=== PATIENT | female | born 1950 | race Caucasian/White ===

== ENCOUNTER 2019-12-18 11:08 | Emergency (ER) | payer MEDICARE, OTHER, SELFPAY ==
[2019-12-18 11:25] VITALS: BP 147/78; PULSE 85; RESP 14; TEMP 36.1; O2SAT 99
--- NOTE | 2019-12-18 11:38 | PC.NURSE ---
pt states that she has recently started on Effexor, lasted five days, says she got worse. stopped that medication and restarted back on paxil. pt thinks she may need a psychiatrist. pt adamantly denied any self harming thoughts. no history of self harm . described mood as weird, doesn't feel like herself. says that her ADL'S have been inhibited. pt says that she is fearful, is scared.
[2019-12-18 12:39] LABS: Basophils Percent Auto 0.5 % (0.2-1.2); Eosinophils Percent Auto 0.2 % (0-4.4); Hematocrit 39.7 % (37.0-47.0); Hemoglobin 13.9 g/dL (12.0-15.0); Immature Granulocyte Absolute 0.02 K/mm3 (0.00-0.031); Immature Granulocyte Percent A 0.2 % (0-0.5); Lymphocytes Absolute Auto 1.04 K/mm3 (0.9-3.2); Lymphocytes Percent Auto 11.9 % (18.3-44.2); Mean Corpuscular Hemoglobin 30.2 pg (26-34); Mean Corpuscular Volume 86.3 fl (80-100); Mean Platelet Volume 9.6 fl (7.4-10.4); Monocytes Absolute Auto 0.5 K/mm3 (0.1-0.6); Monocytes Percent Auto 5.7 % (2.6-8.5); Neutrophils Absolute Auto 7.1 K/mm3 (1.3-6.7); Neutrophils Percent Auto 81.5 % (45.5-73.1); Platelet Count Result 330 k/mm3 (150-375); Red Cell Distribution Width 13.2 % (11.5-14.5); White Blood Count 8.7 K/mm3 (4.5-10.0)
--- NOTE | 2019-12-18 12:46 | PC.NURSE ---
Patient reports that she is feeling very depressed. She tells me that she does not have any energy and is having difficulty getting up and doing normal activities. She also tells me that she is not able to get out of her house to get groceries or run errands. Her family is helping her with this and bringing her groceries and other essential items. She is able to cook and clean as well as perform ADL's but tells me it is difficult due to the depression. She denies any suicidal or homicidal thoughts or actions. She has support system consisting of her son and daughter as well as her neighbor and she tells me that she is able to talk to them and have them help as needed. She is awake, alert, and oriented x4 at this time. She does not report other concerns to me at this time.
[2019-12-18 12:51] LABS: Add Urine Microscopic? YES; Appearance Urine Cloudy (Clear); Bacteria Urine 2+ /hpf; Bilirubin Urine Negative (Negative); Blood Urine Negative (Negative); Color Urine Yellow (Yellow); Glucose Urine UA Negative (Negative); Ketones Urine Negative (Negative); Leukocyte Esterase Ur Negative LEU/UL (Negative); Mucus Urine Rare /lpf; Nitrate Urine Negative (Negative); Protein Urine Negative (Negative); RBC Urine 0-2 /hpf (0-2); Specific Grav Ur 1.015 (1.001-1.035); Squamous Epithelial Cell Urine Many /hpf (Few); Urobilinogen Urine Negative mg/dL (<2.0)
[2019-12-18 12:52] LABS: Alanine Aminotransferase 17 U/L (4-35); Albumin Level 4.2 g/dL (3.5-5.1); Alkaline Phosphatase 86 U/L (38-126); Anion Gap 9 mmol/L (8-16); Aspartate Amino Transferase 25 U/L (14-36); Blood Urea Nitrogen 13 mg/dL (7-17); Calcium 8.9 mg/dL (8.4-10.2); Carbon Dioxide 24 mmol/L (22-30); Chloride 103 mmol/L (98-107); Estimated CRCL calculation 43 ml/min; Estimated Glomerular Filt Rate > 60; Glucose 124 mg/dL (65-105); Potassium 3.5 mmol/L (3.4-5.0); Sodium 136 mmol/L (137-145)
[2019-12-18 13:22] LABS: Thyroid Stimulating Hormone 0.914 uIU/mL (0.465-4.680)
--- NOTE | 2019-12-18 13:56 | ED.GENADULT ---
HPI - General Adult General Chief complaint: Psychiatric Symptoms Stated complaint: depression Time Seen by Provider: 12/18/19 12:15 Source: patient Mode of arrival: ambulatory Limitations: no limitations History of Present Illness HPI narrative: 68 years old white female referred to the emergency room by her family physician because of depression. Patient been taking anti-depression medication without improvement. Patient lives alone, lost her dog 9 months ago, and COVID-19 pandemic a started 6 months ago. Patient does not get out, does not have friends or family. Patient denies any suicidal or homicidal ideation. Related Data Home Medications Medication Instructions Recorded Confirmed amlodipine 12/18/19 atorvastatin 12/18/19 celecoxib mg 12/18/19 estradiol 12/18/19 pantoprazole PO 12/18/19 paroxetine HCl mg PO 12/18/19 12/18/19 Allergies Allergy/AdvReac Type Severity Reaction Status Date / Time amoxicillin AdvReac Mild DIARRHEA Verified 12/18/19 11:41 Review of Systems Review of Systems: Narrative: CONSTITUTIONAL: Denies fever, chills, or sweats. EYES: Denies visual changes, redness, or discharge. ENT: Denies rhinorrhea, congestion, sore throat, or otalgia. CARDIOVASCULAR: Denies chest pain, palpitations, or edema. RESPIRATORY: Denies cough or dyspnea. GASTROINTESTINAL: Denies abdominal pain, nausea, vomiting, or diarrhea. GENITOURINARY: Denies dysuria or hematuria. SKIN: Denies rash or itching. MUSCULOSKELETAL: Denies back pain, joint pain, or myalgia. NEUROLOGIC: Denies headache, numbness, or weakness. PSYCHIATRIC: Denies anxiety or depression. [facility] Social History Social History (Updated 12/18/19 @ 13:58 by Rebecca Guillory MD) Second hand tobacco smoke exposure: No Substance use: never Living arrangements: alone Occupation/Education: retired Spiritual care concerns: No Exam Narrative: Exam Narrative: General appearance: Well-developed, well-nourished Skin: Normal color Head: Normocephalic, nontraumatic Eyes: Clear conjunctiva ENT: Oropharynx normal, ears normal, nose normal Neck: Supple, nontender Chest and respiratory: Airway patent, no respiratory distress, no accessory muscle use Heart: Regular rate/rhythm Abdomen: Soft, nontender, no organomegaly, quiet bowel sounds Vascular: Normal peripheral pulses, normal capillary refill. Musculoskeletal: Normal range of motion, nontender back Neurologic: Alert and oriented ?3, [place] is normal as tested, no gross motor deficit Course Course Emergency Course: Stable Vital Signs Vital signs: Vital Signs Temperature 36.1 C L 12/18/19 11:25 Pulse Rate 85 12/18/19 11:25 Respiratory Rate 14 12/18/19 11:25 Blood Pressure 147/78 H 12/18/19 11:25 Pulse Oximetry 99 12/18/19 11:25 Temperature 36.1 C L 12/18/19 11:25 Pulse Rate 85 12/18/19 11:25 Respiratory Rate 14 12/18/19 11:25 Blood Pressure 147/78 H 12/18/19 11:25 Pulse Oximetry 99 12/18/19 11:25 Medical Decision Making MDM Narrative Medical decision making narrative: Patient lives alone, lost her dog 9 months ago, does not have friends or family. Feels depressed and feels not herself. But denies any suicidal or homicidal ideation. Currently patient on an antidepressant medication which I believe need to be readjusted by her family physician or a psychiatrist. My plan to get some labs and rule out any possible medical reason for her depression. Vital Signs Vital Signs: Vital Signs Temperature 36.1 C L 12/18/19 11:25 Pulse Rate 85 12/18/19 11:25 Respiratory Rate 12/18/19 11:25 Blood Pressure 147/78 H 12/18/19 11:25 Pulse Oximetry 99 12/18/19 11:25
[2019-12-18 14:17] VITALS: BP 152/84; PULSE 88; RESP 16; O2SAT 97
== END 2019-12-18 14:18 | disposition home or self-care (01) ==
PROVIDERS: Emergency Provider Emergency Medicine; PCP Internal Medicine
DX: F32.89 Other specified depressive episodes (principal)
CPT/HCPCS: 36415; 80053; 81001; 84443; 85025; 99283

== ENCOUNTER 2019-12-22 14:38 | Emergency (ER) | payer MEDICARE, OTHER, SELFPAY ==
[2019-12-22] VITALS (25 sets, daily range): BP systolic 112–149; BP diastolic 63–80; PULSE 76–85; RESP 16–25; TEMP 36.7; O2SAT 94–98
--- NOTE | ~2019-12-22 | CT_ITS ---
EXAMINATION: CT brain wo con DATE: 12/22/2019 17:12 INDICATION: Confusion. TECHNIQUE: Computed tomography (CT) of the head was performed without intravenous contrast. The mA wa s adjusted according to patient size. Iterative reconstruction technique was employed. The dose-lengt h product was 529.67 mGy-cm. COMPARISON: None FINDINGS: There is a 5.7 cm predominantly cystic mass in centered in right temporal lobe with adjacen t low-attenuation vasogenic edema. There is mass effect on right lateral ventricle and third ventricl e and 10 mm leftward midline shift. Right-sided uncal herniation is noted. There is mild enlargement of temporal horn of left lateral ventricle. There is no intracranial hemorrhage. There are likely radha nges of ocular lens replacement surgeries. There is mild mucosal thickening in the ethmoid sinuses. T here is a trace right mastoid effusion. IMPRESSION: 1. 5.7 cm predominantly cystic mass centered in right temporal lobe, most likely metastatic disease. 2. 10 mm leftward midline shift and right-sided uncal herniation. 3. I called these results to Dr. Hassan. Reviewed, dictated and finalized at location A. IMPRESSION: 1. 5.7 cm predominantly cystic mass centered in right temporal lobe, most likel y metastatic disease. 2. 10 mm leftward midline shift and right-sided uncal herniation. 3. I called these results to Dr. Hassan.
--- NOTE | 2019-12-22 15:57 | ECG_ITS ---
Measurements Intervals [place] Rate: 77 P: 52 ID: [id number] QRS: 16 QRSD: 84 T: 41 QT: 390 QTc: 443 Interpretive Statements SINUS RHYTHM BASELINE ARTIFACT- I, II, III, AVR, AVL, AVF, V3-V4 NORMAL ECG Electronically Signed On 12-22-2019 16:45:36 CDT by Monty Cardona D.O.
[2019-12-22 16:16] LABS: Basophils Absolute Auto 0.1 K/mm3 (0.0-0.1); Basophils Percent Auto 0.5 % (0.2-1.2); Eosinophils Percent Auto 0.2 % (0-4.4); Hematocrit 43.5 % (37.0-47.0); Hemoglobin 15.2 g/dL (12.0-15.0); Immature Granulocyte Absolute 0.04 K/mm3 (0.00-0.031); Immature Granulocyte Percent A 0.4 % (0-0.5); Lymphocytes Absolute Auto 1.45 K/mm3 (0.9-3.2); Lymphocytes Percent Auto 15.4 % (18.3-44.2); Mean Corpuscular HGB Conc 34.9 g/dl (32-36); Mean Corpuscular Hemoglobin 30.1 pg (26-34); Mean Corpuscular Volume 86.1 fl (80-100); Mean Platelet Volume 10.1 fl (7.4-10.4); Monocytes Absolute Auto 0.7 K/mm3 (0.1-0.6); Monocytes Percent Auto 7.4 % (2.6-8.5); Neutrophils Absolute Auto 7.2 K/mm3 (1.3-6.7); Neutrophils Percent Auto 76.1 % (45.5-73.1); Platelet Count Result 364 k/mm3 (150-375); Red Blood Count 5.05 M/mm3 (4.2-5.4); Red Cell Distribution Width 13.2 % (11.5-14.5); White Blood Count 9.4 K/mm3 (4.5-10.0)
[2019-12-22 16:26] LABS: Alanine Aminotransferase 19 U/L (4-35); Albumin Level 4.6 g/dL (3.5-5.1); Alkaline Phosphatase 105 U/L (38-126); Anion Gap 8 mmol/L (8-16); Aspartate Amino Transferase 27 U/L (14-36); Blood Urea Nitrogen 10 mg/dL (7-17); Calcium 9.4 mg/dL (8.4-10.2); Carbon Dioxide 27 mmol/L (22-30); Chloride 101 mmol/L (98-107); Estimated CRCL calculation 38 ml/min; Estimated Glomerular Filt Rate 55; Glucose 120 mg/dL (65-105); Potassium 3.4 mmol/L (3.4-5.0); Sodium 136 mmol/L (137-145)
--- NOTE | 2019-12-22 17:31 | ED.GENADULT ---
HPI - General Adult General Chief complaint: Altered Mental Status Stated complaint: alt mental status Time Seen by Provider: 12/22/19 16:48 Source: patient History of Present Illness HPI narrative: Patient is a 68 y/o female complaining of frequent falls for 1 1/2 weeks. She states that she fell at least 4 times. There is no known alleviating or exacerbating factor. She has some mild headache, but denies any other injury. She also feels that she has been more forgetful lately. She denies any focal weakness/numbness or speech difficulty. She was evaluated here 4 days ago. Related Data Home Medications Medication Instructions Recorded Confirmed amlodipine 12/18/19 atorvastatin 12/18/19 celecoxib mg 12/18/19 estradiol 12/18/19 pantoprazole PO 12/18/19 paroxetine HCl mg PO 12/18/19 12/18/19 atorvastatin 80 mg PO DAILY 12/22/19 Allergies Allergy/AdvReac Type Severity Reaction Status Date / Time amoxicillin AdvReac Mild DIARRHEA Verified 12/18/19 11:41 Review of Systems Constitutional: Constitutional: Denies chills, Denies fever(s), Reports headache(s) and Denies weakness Eyes: Eyes: Denies blurry vision ENT: Reports headache(s) and Denies neck pain Cardiovascular: Cardiovascular: Denies chest pain and Denies dyspnea Respiratory: Respiratory: Denies cough and Denies dyspnea Gastrointestinal: Gastrointestinal: Denies abdominal pain, Denies diarrhea, Denies nausea and Denies vomiting Genitourinary: Genitourinary: Denies hematuria and Denies dysuria Musculoskeletal: Musculoskeletal: Denies back pain and Denies neck pain Neurologic: Reports headache(s), Reports disequilibrium and Denies weakness [facility] Social History Social History Second hand tobacco smoke exposure: No Substance use: never Spiritual care concerns: No Exam Const: General: no acute distress and well developed Orientation/consciousness: oriented to person, oriented to place, oriented to time and patient oriented x3 HENMT: Head: normocephalic Ears: external ears normal General nose exam: Normal external nose present Eyes: General: appearance normal, both eyes and all related structures Conjunctivae: conjunctivae normal Neck: Neck: normal visual inspection and full ROM Chest: Chest palpation & inspection: normal inspection of the chest and no tenderness Resp: Effort & Inspection: normal respiratory effort Auscultation: clear to auscultation bilaterally Cardio: Rate: regular rate Rhythm: regular rhythm GI: GI Palp: No abdominal tenderness and Yes Soft to palpation Skin: General skin exam: normal color and turgor normal Neuro: General: oriented to person, oriented to place, oriented to time and patient oriented x3 Cranial nerves: Yes CN's II-XII intact bilaterally Cognition (Neuro): normal cognition Speech: normal speech Motor exam (neuro): 5/5 motor strength present throughout Sensory Exam: normal sensation Coordination: [id number] test normal Extrem: General: normal to inspection, full ROM and no pedal edema Psych: Appearance: grossly normal Mental Status: mental status grossly normal Affect: normal affect Course Consultations Consultation #1: Discussed with Dr. Wakefield (Neurosurgery at [place]), who agrees to accept the patient for transfer. Date: 12/22/19 Time: 18:00 Vital Signs Vital signs: Vital Signs Temperature 36.7 C 12/22/19 15:51 Pulse Rate 81 12/22/19 15:51 Respiratory Rate 18 12/22/19 15:51 Blood Pressure 148/77 H 12/22/19 15:51 Pulse Oximetry 98 12/22/19 15:51 Temperature 36.7 C 12/22/19 15:51 Pulse Rate 83 12/22/19 18:16 Respiratory Rate 20 12/22/19 18:16 Blood Pressure 149/78 H 12/22/19 18:16 Pulse Oximetry 95 12/22/19 18:16 Medical Decision Making Vital Signs Vital Signs: Vital Signs Temperature 36.7 C 12/22/19 15:51 Pulse Rate 81 12/22/19 15:51 Respiratory Rate 18 12/22/19 15:51 Bl
[2019-12-22 18:05] LABS: Add Urine Microscopic? NO; Appearance Urine Clear (Clear); Bilirubin Urine Negative (Negative); Blood Urine Negative (Negative); Color Urine Straw (Yellow); Glucose Urine UA Negative (Negative); Ketones Urine Negative (Negative); Leukocyte Esterase Ur Negative LEU/UL (Negative); Nitrate Urine Negative (Negative); Protein Urine Negative (Negative); Specific Grav Ur 1.006 (1.001-1.035); Urobilinogen Urine Negative mg/dL (<2.0)
[2019-12-22] MEDS: DEXAMETHASONE SOD PHOS INJ 4 MG/ML VIAL IV PUSH (18:40)
== END 2019-12-22 20:37 | disposition short-term general hospital (02) ==
PROVIDERS: Emergency Provider Emergency Medicine; PCP Internal Medicine
DX: R41.82 Altered mental status, unspecified (principal); G93.9 Disorder of brain, unspecified
CPT/HCPCS: 36415; 51701; 70450; 80053; 81003; 85025; 93005; 96374; 99285; J1100

== ENCOUNTER 2020-04-20 22:51 | Emergency (ER) | payer MEDICARE, OTHER, SELFPAY ==
--- NOTE | 2020-04-20 23:00 | ECG_ITS ---
Measurements Intervals [place] Rate: 104 P: 64 DC: 189 QRS: 40 QRSD: 82 T: 36 QT: 345 QTc: 455 Interpretive Statements SINUS TACHYCARDIA BASELINE ARTIFACT- I, II, III, AVR, AVL, AVF BORDERLINE ECG Electronically Signed On 04-22-2020 10:41:11 [employer] by Monty Cardona D.O.
[2020-04-20 23:03] VITALS: PULSE 98; RESP 18; TEMP 36.5; O2SAT 100
--- NOTE | 2020-04-20 23:20 | PC.NURSE ---
Report received from OREN Longoria.
--- NOTE | 2020-04-20 23:25 | ED.SOB ---
HPI - SOB/Dyspnea General Chief Complaint: Shortness of Breath/Dyspnea Stated Complaint: SOB, heart palpitations Time Seen by Provider: 04/20/20 23:25 History of Present Illness HPI Narrative: 69 yo female presents to the ED for palpitations and SOB. She used medical marijuana for the first time this evening and shortly after that she felt her heart start racing and she became short of breath. This last about 15 minutes. On arrival to the ED she was feeling back to normal. She believes that she had a panic attack due to the marijuana. Related Data Home Medications Medication Instructions Recorded Confirmed amlodipine 10 mg PO DAILY 12/18/19 celecoxib 200 mg PO DAILY 12/18/19 estradiol 12/18/19 pantoprazole PO 12/18/19 paroxetine HCl mg PO 12/18/19 12/18/19 atorvastatin 80 mg PO DAILY 12/22/19 levetiracetam [Keppra] 750 mg PO BID 04/20/20 Allergies Allergy/AdvReac Type Severity Reaction Status Date / Time amoxicillin AdvReac Mild DIARRHEA Verified 12/18/19 11:41 Review of Systems Review of Systems: All systems reviewed & are unremarkable except as noted in HPI and below Constitutional: Constitutional: Denies fever(s) and Denies weakness Eyes: Eyes: Denies change in vision Cardiovascular: Cardiovascular: Denies chest pain and Reports rapid heart rate Respiratory: Respiratory: Denies chest congestion, Denies cough and Reports dyspnea Gastrointestinal: Gastrointestinal: Denies abdominal pain, Denies nausea and Denies vomiting Genitourinary: Genitourinary: Denies dysuria Musculoskeletal: Musculoskeletal: Denies back pain Neurologic: Denies numbness and Denies weakness PMFSH Past Medical History Medical History (Updated 04/22/20 @ 03:15 by Rian Stout MD) Brain cancer HTN (hypertension) Social History Social History Second hand tobacco smoke exposure: No Substance use: never Spiritual care concerns: No Exam Const: General: no acute distress, alert and ill appearing chronically Nutritional Appearance: well nourished Orientation/consciousness: patient oriented x3 HENMT: Head: normal to inspection Eyes: Pupils: Equal, round and reactive pupils present Resp: Effort & Inspection: normal respiratory effort Auscultation: clear to auscultation bilaterally Cardio: Rate: regular rate Rhythm: regular rhythm GI: GI Palp: Yes Soft to palpation and No Tenderness to palpation present (GI) Neuro: General: patient oriented x3, moves all extremities, no focal motor deficits and CN's II-XI intact bilaterally Speech: normal speech Course Vital Signs Vital signs: Vital Signs Temperature 36.5 C 04/20/20 23:03 Pulse Rate 98 04/20/20 23:03 Respiratory Rate 18 04/20/20 23:03 Pulse Oximetry 100 04/20/20 23:03 Temperature 36.5 C 04/20/20 23:03 Pulse Rate 88 04/20/20 23:40 Respiratory Rate 12 04/20/20 23:40 Blood Pressure 130/91 H 04/20/20 23:40 Pulse Oximetry 96 04/20/20 23:40 MDM - SOB/Dyspnea MDM Narrative Medical decision making narrative: On my evaluation she says that she is feeling well and ready to go home. Her son is present and agrees that she seems to be her normal self. Differential Diagnosis Differential diagnosis: Likely other (panic attack) Medical Records Attestation: I reviewed the patient's medical records. Discharge Plan Discharge Clinical Impression: Anxiety Patient Disposition: Home, Self-Care Condition: Stable Instructions: Anxiety (ED) Prescriptions: No Action celecoxib 200 mg capsule 200 mg PO DAILY RF: 0 estradiol 0.1 mg/24 hr patch semiweekly RF: 0 amlodipine 10 mg tablet 10 mg PO DAILY RF: 0 pantoprazole 40 mg tablet,delayed release (DR/EC) PO RF: 0 paroxetine HCl 40 mg tablet PO RF: 0 atorvastatin 80 mg Tablet 80 mg PO DAILY RF: 0 levetiracetam [Keppra] 750 mg Tablet 750 mg PO BID RF: 0 Follow-
--- NOTE | 2020-04-20 23:25 | PC.NURSE ---
Called to patient room, states that her legs feel funny, and my right one is shaking . Warm blanket offered and given.
[2020-04-20 23:40] VITALS: BP 130/91; PULSE 88; RESP 12; O2SAT 96
== END 2020-04-20 23:46 | disposition home or self-care (01) ==
PROVIDERS: Emergency Provider Emergency Medicine; PCP Internal Medicine
DX: F41.9 Anxiety disorder, unspecified (principal); I10 Essential (primary) hypertension; Z85.841 Personal history of malignant neoplasm of brain; R00.0 Tachycardia, unspecified
CPT/HCPCS: 93005; 99283

== ENCOUNTER 2020-11-19 15:27 | Emergency (ER) | payer MEDICARE, OTHER, SELFPAY ==
[2020-11-19 15:35] VITALS: BP 150/73; PULSE 86; RESP 17; TEMP 36.3; O2SAT 98
--- NOTE | 2020-11-19 15:36 | ED.SKABFB ---
HPI - Skin/Abscess/Foreign Bdy General Chief complaint: Skin/Abscess/Foreign Body Stated complaint: Rash back Lt thigh Time Seen by Provider: 11/19/20 15:35 Source: patient and RN notes reviewed Mode of arrival: ambulatory Limitations: no limitations History of Present Illness HPI narrative: 69-year-old female presents to the [facility] with a rash to the left posterior thigh for the last 2 to 3 days. Describes that when it started it was very itchy. It is dry, mildly raised and red. No increased warmth. No blisters or vesicular lesions. Denies any new creams or ointments lotions or detergents. States that she just had her yard sprayed with chemicals. Related Data Home Medications Medication Instructions Recorded Confirmed amlodipine 10 mg PO DAILY 12/18/19 11/19/20 celecoxib 200 mg PO DAILY 12/18/19 11/19/20 estradiol 1 patch TRANSDERMAL WE 12/18/19 11/19/20 pantoprazole 40 mg PO DAILY 12/18/19 11/19/20 paroxetine HCl 40 mg PO DAILY 12/18/19 11/19/20 atorvastatin 80 mg PO DAILY 12/22/19 11/19/20 levetiracetam [Keppra] 750 mg PO BID 04/20/20 11/19/20 latanoprost 1 drp EACH EYE HS 11/19/20 11/19/20 Allergies Allergy/AdvReac Type Severity Reaction Status Date / Time amoxicillin AdvReac Mild DIARRHEA Verified 11/19/20 15:34 Review of Systems Review of Systems: All systems reviewed & are unremarkable except as noted in HPI and below Constitutional: Constitutional: Reports no additional constitutional complaints, Denies chills and Denies fever(s) Eyes: Eyes: Reports no additional eye complaints ENT: Reports system reviewed and no additional complaints, except as documented Cardiovascular: Cardiovascular: Reports no additional cardiovascular complaints and Denies chest pain Respiratory: Respiratory: Reports no additional respiratory complaints, Denies cough, Denies dyspnea and Denies wheezing Gastrointestinal: Gastrointestinal: Reports no additional gastrointestinal complaints, Denies abdominal pain, Denies nausea and Denies vomiting Musculoskeletal: Musculoskeletal: Reports no additional musculoskeletal complaints, Denies myalgias, Denies arthralgias and Denies joint swelling Integumentary/Breasts: Skin/Breast: Reports as per HPI and Reports rash (Left posterior thigh) Neurologic: Reports system reviewed and no additional complaints, except as documented, Denies dizziness, Denies headache(s) and Denies numbness Psychiatric: Psychiatric: Reports no additional psychiatric complaints Allergic/Immunologic: Allergic/Immunologic: Reports no additional allergic/immunologic complaints, Denies lip swelling, Denies throat swelling, Denies tongue swelling and Denies wheezing PMFSH Past Medical History Medical History (Updated 11/19/20 @ 16:50 by Jeni Ovalle) Anxiety Brain cancer Depression H/O gastroesophageal reflux (GERD) High cholesterol HTN (hypertension) Surgical History Surgical History (Updated 11/19/20 @ 16:49 by Jeni Ovalle) H/O brain surgery Social History Social History Second hand tobacco smoke exposure: No Substance use: never Gender identity (if verbalized by the patient): Female Spiritual care concerns: No Comments At the time of my signature, I reviewed and agree with the nursing past medical, surgical, social, and family history. There is no relevant family history pertinent to the patient complaint. Exam Const: General: no acute distress, alert and ill appearing chronically; not acutely Nutritional Appearance: well nourished Orientation/consciousness: patient oriented x3 Limitations: no limitations HENMT: Head: normal to inspection Eyes: Conjunctivae: conjunctivae normal Pupils: Equal, round and reactive pupils present Neck: Neck: normal visual inspection, no lymphadenopathy and no meningeal signs Chest: Chest palpation & inspection: normal inspection of the chest Resp: Effort & Inspection: normal respiratory effort
== END 2020-11-19 15:50 | disposition home or self-care (01) ==
PROVIDERS: Emergency Provider Nurse Practitioner; PCP Internal Medicine
DX: L25.9 Unspecified contact dermatitis, unspecified cause (principal); F41.9 Anxiety disorder, unspecified; F32.9 Major depressive disorder, single episode, unspecified; K21.9 Gastro-esophageal reflux disease without esophagitis; I10 Essential (primary) hypertension; Z85.841 Personal history of malignant neoplasm of brain
CPT/HCPCS: 99213; G0463

== ENCOUNTER 2021-09-08 16:30 | Emergency (ER) | payer MEDICARE, OTHER, SELFPAY ==
--- NOTE | ~2021-09-08 | US_ITS ---
EXAMINATION: US venous doppler UE RT DATE: 09/08/2021 17:57 INDICATION: Right upper extremity pain TECHNIQUE: Grayscale ultrasound images without and with compression and Doppler ultrasound images of the right upper extremity veins were obtained. COMPARISON: None. FINDINGS: The right internal jugular vein, subclavian vein, axillary vein, brachial veins, basilic vein, cephal ic vein, radial vein, and ulnar vein are patent. IMPRESSION: 1. No evidence of deep venous thrombosis. Reviewed, dictated and finalized at location F.
--- NOTE | ~2021-09-08 | CT_ITS ---
EXAMINATION: CT cervical spine wo con DATE: 09/08/2021 21:03 INDICATION: Right arm pain and paresthesia TECHNIQUE: Computed tomography (CT) of the cervical spine was performed without intravenous contrast. The dose-length product (DLP) was 250.73 mGy-cm. Automated exposure control and iterative reconstruc tion technique were employed. COMPARISON: None FINDINGS: There is no fracture. Bone alignment is normal. There is severe loss of intervertebral disc space height throughout the cervical spine. The odontoid is intact. Degenerative osteophytes project from the anterior endplates of multiple vertebral bodies. There is severe multilevel facet and uncov ertebral joint osteoarthritis. There are laminectomy changes on the left with orthopedic hardware rep lacement at C4, C5, and C6. There is a right mastoid effusion. IMPRESSION: 1. Severe cervical spondylosis without acute findings. 2. Right mastoiditis. Reviewed, dictated and finalized at location F.
[2021-09-08 17:03] VITALS: BP 129/56; PULSE 107; RESP 20; TEMP 35.8; O2SAT 98
--- NOTE | 2021-09-08 17:10 | ECG_ITS ---
Measurements Intervals [place] Rate: 84 P: 60 [place]: 173 QRS: 53 QRSD: 81 T: 49 QT: 368 QTc: 437 Interpretive Statements SINUS RHYTHM NORMAL ECG COMPARED TO ECG 04/20/2020 23:02:08 HEART RATE HAS DECREASED Electronically Signed On 09-08-2021 17:28:05 CDT by Pb Robertson M.D.
[2021-09-08 17:32] LABS: Basophils Percent Auto 0.7 % (0.2-1.2); Eosinophils Percent Auto 0.7 % (0-4.4); Hematocrit 38.1 % (37.0-47.0); Hemoglobin 12.4 g/dL (12.0-15.0); Immature Granulocyte Absolute 0.01 K/mm3 (0.00-0.031); Immature Granulocyte Percent A 0.2 % (0-0.5); Lymphocytes Absolute Auto 0.71 K/mm3 (0.9-3.2); Mean Corpuscular HGB Conc 32.5 g/dl (32-36); Mean Corpuscular Hemoglobin 28.5 pg (26-34); Mean Corpuscular Volume 87.6 fl (80-100); Mean Platelet Volume 8.9 fl (7.4-10.4); Monocytes Absolute Auto 0.5 K/mm3 (0.1-0.6); Monocytes Percent Auto 11.2 % (2.6-8.5); Neutrophils Absolute Auto 2.9 K/mm3 (1.3-6.7); Neutrophils Percent Auto 70.2 % (45.5-73.1); Platelet Count Result 295 k/mm3 (150-375); Red Blood Count 4.35 M/mm3 (4.2-5.4); Red Cell Distribution Width 14.8 % (11.5-14.5); White Blood Count 4.2 K/mm3 (4.5-10.0)
[2021-09-08 17:43] LABS: Prothrombin Time 12.7 Seconds (11.1-14.7)
[2021-09-08 17:44] LABS: Anion Gap 9 mmol/L (8-16); Blood Urea Nitrogen 12 mg/dL (7-17); Calcium 8.7 mg/dL (8.4-10.2); Carbon Dioxide 23 mmol/L (22-30); Chloride 103 mmol/L (98-107); Estimated Glomerular Filt Rate 49; Glucose 125 mg/dL (65-110); Partial Thromboplastin Time 30.3 SECONDS (22.3-36.8); Potassium 3.5 mmol/L (3.4-5.0); Sodium 135 mmol/L (137-145)
--- NOTE | 2021-09-08 20:02 | ED.EXTPRO ---
HPI - Extremity Problem General Chief complaint: Extremity Problem,Nontraumatic <Patricia Sloan PA-C - Last Filed: 09/08/21 22:33> Stated complaint: R ARM PAIN, HX OF DVT TO R SHOULDER <Patricia Sloan PA-C - Last Filed: 09/08/21 22:33> Time Seen by Provider: 09/08/21 20:01 <Patricia Sloan PA-C - Last Filed: 09/08/21 22:33> Source: patient <JOSE JUAN Reaves Last Filed: 09/08/21 22:33> Mode of arrival: ambulatory <JOSE JUAN Reaves Last Filed: 09/08/21 22:33> Limitations: no limitations <JOSE JUAN Reaves Last Filed: 09/08/21 22:33> History of Present Illness HPI Narrative: This is a 70 year old female that presents to the ER for right arm pain intermittent for the last week. No known injury or trauma. Reports some intermittent paresthesias in the arm. Reports now her pain has somewhat resolved today. She did not take any pain medication. She reports history of a DVT in this arm. She also reports history of spinal stenosis for which she has had cervical spine surgery. Denies chest pain, shortness of breath, numbness, or weakness. <Patricia Sloan PA-C - Last Filed: 09/08/21 22:33> Related Data Home medications: Home Medications Medication Instructions Recorded Confirmed amlodipine 10 mg tablet 10 mg PO DAILY 12/18/19 11/19/20 celecoxib 200 mg capsule 200 mg PO DAILY 12/18/19 11/19/20 estradiol 0.1 mg/24 hr semiweekly 1 patch transdermal WE 12/18/19 11/19/20 transdermal patch pantoprazole 40 mg tablet,delayed 40 mg PO DAILY 12/18/19 11/19/20 release paroxetine HCl 40 mg tablet 40 mg PO DAILY 12/18/19 11/19/20 atorvastatin 80 mg tablet 80 mg PO DAILY 12/22/19 11/19/20 levetiracetam 750 mg tablet 750 mg PO BID 04/20/20 11/19/20 ([place]) latanoprost 0.005 % eye drops 1 drp EACH EYE HS 11/19/20 11/19/20 <Patricia Sloan PA-C - Last Filed: 09/08/21 22:33> Allergies/Adverse reactions: Allergies Allergy/AdvReac Type Severity Reaction Status Date / Time amoxicillin AdvReac Mild DIARRHEA Verified 09/08/21 20:02 <Patricia Sloan PA-C - Last Filed: 09/08/21 22:33> Review of Systems Review of Systems: CONSTITUTIONAL: Denies fever MUSCULOSKELETAL: Reports joint pain, and myalgia. NEUROLOGIC: Denies numbness, or weakness. <Patricia Sloan PA-C - Last Filed: 09/08/21 22:33> All systems reviewed & are unremarkable except as noted in HPI and below <Patricia Sloan PA-C - Last Filed: 09/08/21 22:33> PMFSH Past Medical History Medical History: Medical History (Updated 09/09/21 @ 00:00 by Rocío Holloway) Anxiety Brain cancer Depression H/O gastroesophageal reflux (GERD) High cholesterol HTN (hypertension) <Patricia Sloan PA-C - Last Filed: 09/08/21 22:33> Surgical History Surgical History: Surgical History (Updated 11/19/20 @ 16:49 by Jeni Ovalle APRN) H/O brain surgery <Patricia Sloan PA-C - Last Filed: 09/08/21 22:33> Social History Social History: Social History Second hand tobacco smoke exposure: No Substance use: never Gender identity (if verbalized by the patient): Female Spiritual care concerns: No <JOSE JUAN Reaves Last Filed: 09/08/21 22:33> Exam Narrative: GENERAL: Well-appearing, well-nourished, and in no acute distress. HEAD: Normocephalic, atraumatic. EYES: EOMI. CHEST: Clear to auscultation. No respiratory distress. No wheezes rales or rhonchi HEART: Regular rate and rhythm. No murmur heard. Normal peripheral pulses. EXTREMITIES: Normal range of motion. No edema, erythema or warmth. Normal radial pulses. Normal sensation. Strength equal in bilateral upper extremities (5/5) SKIN: Warm, dry, no rash. NEURO: No focal deficits. Alert and oriented x3. PSYCH: Normal mood and affect <Patricia Sloan PA-C - Last Filed: 09/08/21 22:33> Course MOLDING SANDER/PA Physician Supervision I did not see this patient
== END 2021-09-08 22:54 | disposition home or self-care (01) ==
PROVIDERS: Emergency Medicine; Emergency Provider Emergency Medicine; PCP Internal Medicine
DX: M79.601 Pain in right arm (principal); H65.90 Unspecified nonsuppurative otitis media, unspecified ear; I10 Essential (primary) hypertension; F32.9 Major depressive disorder, single episode, unspecified; F41.9 Anxiety disorder, unspecified; Z86.718 Personal history of other venous thrombosis and embolism; Z85.841 Personal history of malignant neoplasm of brain
CPT/HCPCS: 36415; 72125; 80048; 85025; 85610; 85730; 93005; 93971; 99284

== ENCOUNTER 2022-05-24 15:03 | Emergency (ER) | payer MEDICARE, OTHER, SELFPAY ==
[2022-05-24 15:35] VITALS: BP 138/87; PULSE 85; RESP 18; TEMP 36.4; O2SAT 98
--- NOTE | 2022-05-24 15:46 | ED.FEMALEGU ---
HPI - Female Genitourinary General Chief complaint: Urogenital-Female Stated complaint: Female Urogenital Time Seen by Provider: 05/24/22 15:50 Source: patient and RN notes reviewed Mode of arrival: ambulatory Limitations: no limitations History of Present Illness HPI Narrative: 71-year-old here with four day history of painful urination, frequency, chills, and feeling that she is unable to empty her bladder. Says she has not had a change to her diet or fluid intake. Has been waking up more often at night to urinate. Has not noticed a change to the color or odor of her urine. Does say she thinks she has been more forgetful lately, states she was seen by oncologist yesterday but forgot to mention urinary symptoms. She was given a prescription for Bactrim by her PCP today, which she has not filled yet. Denies flank pain, abdominal pain, n/v/d, fever, or myalgias. Hx brain tumor s/p removal 2019. Related Data Home Medications Medication Instructions Recorded Confirmed estradiol 0.1 mg/24 hr semiweekly 1 patch transdermal WE 12/18/19 05/24/22 transdermal patch levetiracetam 750 mg tablet 750 mg PO BID 04/20/20 05/24/22 (Keppra) latanoprost 0.005 % eye drops 1 drp EACH EYE HS 11/19/20 05/24/22 Allergies Allergy/AdvReac Type Severity Reaction Status Date / Time amoxicillin AdvReac Mild DIARRHEA Verified 05/24/22 15:21 Review of Systems Review of Systems: CONSTITUTIONAL: Denies body aches, fever, or sweats. Endorses chills. CARDIOVASCULAR: Denies chest pain, palpitations, or edema. RESPIRATORY: Denies cough or dyspnea. GASTROINTESTINAL: Denies abdominal pain, nausea, vomiting, or diarrhea. GENITOURINARY: Reports dysuria, frequency, urgency. Denies hematuria or flank pain SKIN: Denies rash, itching, or wounds. MUSCULOSKELETAL: Denies back pain or myalgia. [facility] Past Medical History Medical History Anxiety Brain cancer Depression GERD (gastroesophageal reflux disease) High cholesterol HTN (hypertension) Surgical History Surgical History H/O brain surgery Social History Social History Smoking status: Unknown if ever smoked Second hand tobacco smoke exposure: No Alcohol intake: never Substance use: never Substance use type: does not use Lack of Transportation: No Lack of Food: Never True Current Housing: I Have Housing Concerned About Future Housing: No Difficulty Paying Gas/Electric Bills: No Difficulty Paying for Meds: No Currently Unemployed: No Education: High School Diploma/GED Difficulty w/ Childcare or Family Care: No Living arrangements: alone Occupation/Education: retired Gender identity (if verbalized by the patient): Female Sexual Orientation (if Verbalized by the Patient): Straight or Heterosexual Spiritual care concerns: No Comments At time of signature, I have reviewed and agree with nursing past medical, surgical, social and family history unless otherwise noted. Please see nursing chart for further information. There is no relevant family history pertinent to the presenting complaint Exam Narrative: GENERAL: Well-appearing and in no acute distress. ENT: Mucous membranes pink and moist. CHEST: No respiratory distress. Clear to auscultation. HEART: Regular rate and rhythm. ABDOMEN: Soft, nontender, nondistended, normal active bowel sounds. No CVA tenderness MUSCULOSKELETAL: No bony tenderness. SKIN: Warm, dry, no rash. NEURO: No focal deficits. Alert and oriented x3. Gait steady. PSYCH: Normal affect. No signs of depression or anxiety. Course Course Emergency Course: Patient is aware of diagnosis, understands and agrees to treatment plan. Anticipatory guidance given. Patient agrees to follow-up as directed and is aware of reasons to seek care at the emergency department.
== END 2022-05-24 16:18 | disposition home or self-care (01) ==
PROVIDERS: Emergency Provider Nurse Practitioner Family
DX: N39.0 Urinary tract infection, site not specified (principal); K21.9 Gastro-esophageal reflux disease without esophagitis; E78.00 Pure hypercholesterolemia, unspecified; I10 Essential (primary) hypertension; Z85.841 Personal history of malignant neoplasm of brain
CPT/HCPCS: 81003; 87077; 87086; 87186; 99213; G0463

== ENCOUNTER 2022-06-08 09:19 | Emergency (ER) | payer MEDICARE, OTHER, SELFPAY ==
[2022-06-08 09:30] VITALS: BP 145/68; PULSE 68; RESP 18; TEMP 36.1; O2SAT 99
--- NOTE | 2022-06-08 09:55 | ED.FEMALEGU ---
HPI - Female Genitourinary General Chief complaint: Urogenital-Female Stated complaint: uti symptoms Time Seen by Provider: 06/08/22 09:58 Source: patient and RN notes reviewed Mode of arrival: ambulatory Limitations: no limitations History of Present Illness HPI Narrative: 71-year-old here with four day history of soreness with urination, frequency, and feeling that she is unable to empty her bladder. Has been waking up more often at night to urinate. Has not noticed a change to the color or odor of her urine. Patient was seen on 05/24/22 for similar symptoms. She had also notified PCP who prescribed Bactrim. States she completed the abx but symptoms have not improved. Urine C&S showed susceptibility to Bactrim. States she contacted pcp today, was advised to provide urine sample but states she came here instead because it is raining. Denies flank pain, abdominal pain, hematuria, n/v/d, fever, or myalgias. Hx brain tumor s/p removal 2019. Related Data Home Medications Medication Instructions Recorded Confirmed estradiol 0.1 mg/24 hr semiweekly 1 patch transdermal WE 12/18/19 06/08/22 transdermal patch latanoprost 0.005 % eye drops 1 drp EACH EYE HS 11/19/20 06/08/22 Allergies Allergy/AdvReac Type Severity Reaction Status Date / Time sulfamethoxazole AdvReac Severe Diarrhea Verified 06/08/22 09:45 [From Bactrim] trimethoprim [From Bactrim] AdvReac Severe Diarrhea Verified 06/08/22 09:45 amoxicillin AdvReac Mild DIARRHEA Verified 06/08/22 09:45 Review of Systems Review of Systems: CONSTITUTIONAL: Denies body aches, fever, chills, or sweats. CARDIOVASCULAR: Denies chest pain, palpitations, or edema. RESPIRATORY: Denies cough or dyspnea. GASTROINTESTINAL: Denies abdominal pain, nausea, vomiting, or diarrhea. GENITOURINARY: Reports dysuria, frequency, urgency, denies hematuria, flank pain SKIN: Denies rash, itching, or wounds. MUSCULOSKELETAL: Denies back pain or myalgia. PMF Past Medical History Medical History Anxiety Brain cancer Depression GERD (gastroesophageal reflux disease) High cholesterol HTN (hypertension) Surgical History Surgical History H/O brain surgery History of hysterectomy 1991 BSO also Social History Social History Smoking status: Unknown if ever smoked Second hand tobacco smoke exposure: No Alcohol intake: never Substance use: never Substance use type: does not use Lack of Transportation: No Lack of Food: Never True Current Housing: I Have Housing Concerned About Future Housing: No Difficulty Paying Gas/Electric Bills: No Difficulty Paying for Meds: No Currently Unemployed: No Education: High School Diploma/GED Difficulty w/ Childcare or Family Care: No Living arrangements: alone Occupation/Education: retired Gender identity (if verbalized by the patient): Female Sexual Orientation (if Verbalized by the Patient): Straight or Heterosexual Spiritual care concerns: No Comments At time of signature, I have reviewed and agree with nursing past medical, surgical, social and family history unless otherwise noted. Please see nursing chart for further information. There is no relevant family history pertinent to the presenting complaint Exam Narrative: GENERAL: Well-appearing ENT: Mucous membranes pink and moist. CHEST: No respiratory distress. Clear to auscultation. HEART: Regular rate and rhythm. ABDOMEN: Soft, nontender, nondistended, normal active bowel sounds. No CVA tenderness SKIN: Warm, dry, no rash. NEURO: No focal deficits. Alert and oriented x3. Gait steady. Course Course Emergency Course: Patient is aware of diagnosis, understands and agrees to treatment plan. Anticipatory guidance given. Patient agrees to follow-up as directed and is aware of r
== END 2022-06-08 10:08 | disposition home or self-care (01) ==
PROVIDERS: Emergency Provider Nurse Practitioner Family
DX: R30.0 Dysuria (principal); K21.9 Gastro-esophageal reflux disease without esophagitis; E78.00 Pure hypercholesterolemia, unspecified; I10 Essential (primary) hypertension; F41.9 Anxiety disorder, unspecified; F32.A Depression, unspecified; Z85.841 Personal history of malignant neoplasm of brain
CPT/HCPCS: 81003; 87086; 87088; 99213; G0463

== ENCOUNTER 2022-07-27 00:20 | Emergency (ER) | payer MEDICARE, OTHER, SELFPAY ==
--- NOTE | ~2022-07-27 | CT_ITS ---
EXAMINATION: CT brain wo con DATE: 07/27/2022 02:49 INDICATION: Status post fall. Head injury. History of brain tumor. Patient on blood thinners. TECHNIQUE: Computed tomography (CT) of the head was performed without intravenous contrast. The dose- length product was 529.67 mGy-cm. Automated exposure control and iterative reconstruction technique w ere employed. COMPARISON: CT dated 12/22/2019 FINDINGS: Status post right pterional craniotomy with encephalomalacia. There are scattered mild jemma ventricular and subcortical white matter changes, most likely related to small vessel ischemic diseas e (microangiopathy). No ventriculomegaly or midline shift. No no acute infarction, hemorrhage or mass . Mild chronic maxillary and ethmoid sinus disease. Mastoids are pneumatized. Small right mastoid eff usion. There is intracranial atherosclerosis. IMPRESSION: 1. No acute intracranial abnormality. 2: Status post right pterional craniotomy with underlying encephalomalacia status post tumor resectio n. Reviewed, dictated and finalized at location A. IMPRESSION: 1. No acute intracranial abnormality. 2: Status post right pterional craniotomy with underlying encephalomalacia stat us post tumor resection.
--- NOTE | ~2022-07-27 | CT_ITS ---
EXAMINATION: CT cervical spine wo con DATE: 07/27/2022 02:49 INDICATION: Neck pain after fall TECHNIQUE: Computed tomography (CT) of the cervical spine was performed without intravenous contrast. The dose-length product was 278 mGy-cm. Automated exposure control and iterative reconstruction tech [id number] were employed. COMPARISON: CT dated 09/08/2021 FINDINGS: There is straightening of cervical lordosis. There is severe multilevel degenerative disc d isease with disc narrowing and endplate hypertrophy at all cervical levels. There are laminectomy radha nges at C4, C5-C6. There is atherosclerosis of the carotid arteries. Craniovertebral junction within normal limits. Odontoid process is normal. There is advanced multilevel facet and uncinate mildly pro minent cervical lymph nodes, likely reactive. Lung apices are normal. Hypertrophy. There is right mas toid effusion. IMPRESSION: 1. No acute abnormality of the cervical spine. 2: Severe cervical spondylosis. Reviewed, dictated and finalized at location A.
[2022-07-27 00:16] VITALS: BP 143/93; PULSE 97; RESP 16; TEMP 36.8; O2SAT 97
--- NOTE | 2022-07-27 00:28 | ED.FALL ---
HPI - Fall General Chief Complaint: Fall Stated Complaint: FALL Time Seen by Provider: 07/27/22 00:21 History of Present Illness HPI Narrative: 70-year-old female here for evaluation of headache and neck pain after a fall today. Patient states that she slipped on some water in her bathtub causing her to fall face first on the side of the tub. She denies loss of consciousness. She takes a daily baby aspirin. She hit her life alert button and required some assistance getting up. Denies any visual changes, chest pain, shortness of breath, nausea, vomiting, weakness prior to the fall. She does have a history of a brain tumor and takes Keppra. Related Data Home Medications Medication Instructions Recorded Confirmed estradiol 0.1 mg/24 hr semiweekly 1 patch transdermal WE 12/18/19 06/08/22 transdermal patch latanoprost 0.005 % eye drops 1 drp EACH EYE HS 11/19/20 06/08/22 Allergies Allergy/AdvReac Type Severity Reaction Status Date / Time sulfamethoxazole AdvReac Severe Diarrhea Verified 07/27/22 00:36 [From Bactrim] trimethoprim [From Bactrim] AdvReac Severe Diarrhea Verified 07/27/22 00:36 amoxicillin AdvReac Mild DIARRHEA Verified 07/27/22 00:36 Review of Systems Review of Systems: Gen.: Denies fevers or chills Eyes: Denies eye pain or visual change ENT: Denies congestion Respiratory: Denies shortness of breath or cough CV: Denies chest pain or palpitations GI: Denies abdominal pain nausea, emesis or diarrhea denies burning, urgency, frequency or hematuria Musculoskeletal: Denies back pain or muscle pain Neuro: Reports headache Skin: Denies rash Except as documented, all other systems reviewed and negative [facility] Past Medical History Medical History Anxiety Brain cancer Depression GERD (gastroesophageal reflux disease) High cholesterol HTN (hypertension) Surgical History Surgical History H/O brain surgery History of hysterectomy 1991 BSO also Social History Social History Smoking status: Unknown if ever smoked Second hand tobacco smoke exposure: No Alcohol intake: never Substance use: never Substance use type: does not use Lack of Transportation: No Lack of Food: Never True Current Housing: I Have Housing Concerned About Future Housing: No Difficulty Paying Gas/Electric Bills: No Difficulty Paying for Meds: No Currently Unemployed: No Education: High School Diploma/GED Difficulty w/ Childcare or Family Care: No Living arrangements: alone Occupation/Education: retired Gender identity (if verbalized by the patient): Female Sexual Orientation (if Verbalized by the Patient): Straight or Heterosexual Spiritual care concerns: No Exam Narrative: APPEARANCE: Well appearing, no pain in distress, well-nourished. Head: There is a hematoma to the right frontal forehead. No lacerations. EYES: PERRLA/EOMI, conjunctivae clear NOSE: No nasal drainage EARS: External ear normal in appearance THROAT: Oropharynx is clear. Mucous membranes are moist. NECK: c collar in place. RESPIRATORY: Airway patent, respirations nonlabored. Clear to auscultation bilaterally, no rales, rhonchi, wheezing. CARDIOVASCULAR: Regular rate and rhythm without murmurs, rubs, or gallops. ABDOMINAL: Normoactive bowel sounds. Soft, nontender, nondistended. No rebound tenderness or guarding. MUSCULOSKELETAL: There is no bony tenderness to palpation of either hip, knee or foot. There is no point tenderness extremities are warm and well-perfused. Moves all extremities well. No edema. NEURO: Normal speech. No focal neurologic deficits. SKIN: Skin is warm and dry. No rashes. PSYCHIATRIC: Normal affect/mood. Course Vital Signs Vital signs: Vital Signs Temperature 98.2 F 07/27/22 00:16 Pulse Rate 97 07/27
[2022-07-27] MEDS: ACETAMINOPHEN 325 MG TABLET 650 MG PO (00:35)
[2022-07-27 00:36] VITALS: BP 144/81; PULSE 83; RESP 22; O2SAT 97
== END 2022-07-27 02:53 | disposition home or self-care (01) ==
LOC: ANHED 00:30
PROVIDERS: Emergency Provider Physician Assistant
DX: S00.83XA Contusion of other part of head, initial encounter (principal); I10 Essential (primary) hypertension; Z85.841 Personal history of malignant neoplasm of brain; W18.2XXA Fall in (into) shower or empty bathtub, initial encounter
CPT/HCPCS: 70450; 72125; 99284; A9270

== ENCOUNTER 2022-07-30 11:47 | Observation (INO) | payer MEDICARE, OTHER, SELFPAY ==
[2022-07-30] VITALS (31 sets, daily range): BP systolic 117–156; BP diastolic 51–121; PULSE 55–81; RESP 10–27; TEMP 36.4–37; O2SAT 97–100; BMI 27.4; BMI 27.6
--- NOTE | ~2022-07-30 | XR_ITS ---
EXAMINATION: XR chest 1V portable INDICATION: Weakness TECHNIQUE: Portable AP chest at 1238 hours COMPARISON: 08/13/2016 FINDINGS: The lungs are free of acute opacities. No pleural effusion or pneumothorax. The cardiomedia stinal silhouette is normal. IMPRESSION: 1. No acute cardiopulmonary abnormality. Reviewed, dictated and finalized at location B.
--- NOTE | ~2022-07-30 | CT_ITS ---
EXAMINATION: CT brain wo con DATE: 07/30/2022 13:15 INDICATION: Glioblastoma. Falls. TECHNIQUE: Computed tomography (CT) of the head was performed without intravenous contrast. The mA wa s adjusted according to patient size. Iterative reconstruction technique was employed. The dose-lengt h product was 529.67 mGy-cm. COMPARISON: Head CT 07/27/2022, 12/22/2019 FINDINGS: There are changes of right-sided craniotomy. There are changes of resection in right tempor al lobe. There is low attenuation involving right frontotemporal parietal region and right insula. Th ere is no intracranial hemorrhage or acute ischemic infarct. There is mild mass effect on right later al ventricle. There are likely changes of ocular lens replacement surgeries. There is mucosal thicken ing in the paranasal sinuses. There is a small right mastoid effusion. IMPRESSION: 1. Stable low attenuation involving right frontotemporal parietal region and right insula, consistent with glioblastoma and/or treatment change. Reviewed, dictated and finalized at location A. IMPRESSION: 1. Stable low attenuation involving right frontotemporal parietal region and ri ght insula, consistent with glioblastoma and/or treatment change.
--- NOTE | ~2022-07-30 | CT_ITS ---
EXAMINATION: CT cervical spine wo con DATE: 07/30/2022 13:15 INDICATION: Neck injury. Falls. TECHNIQUE: Computed tomography (CT) of the cervical spine was performed without intravenous contrast. Automated exposure control and iterative reconstruction technique were employed. The dose-length pro duct was 311.13 mGy-cm. COMPARISON: CT cervical spine 07/27/2022 FINDINGS: There is 9 degrees dextrocurvature of cervical spine. There is kyphosis of cervical spine. There are laminectomies from C3 to C6 with instrumentation from C4 to C6. There is mildly decreased d isc height at C2-C3 and moderately decreased disc height at C3-C4. There is severely decreased disc h eight at C4-C5 and C5-C6 with interbody fusion. There is severely decreased disc height at C6-C7 and C7-T1. There is interbody fusion at T1-T2. There is ankylosis of facet joints from C4 to C6 and at T1 -T2. The following disc levels are specifically discussed: C2-C3: There is no uncovertebral joint osteoarthritis. There is severe bilateral facet joint osteoart hritis. There is mild left neural foraminal stenosis. There is no central canal stenosis. C3-C4: There is severe bilateral uncovertebral joint osteoarthritis. There is severe bilateral facet joint osteoarthritis. There is mild bilateral neural foraminal stenosis. There is mild central canal stenosis with posterior decompression. C4-C5: There is mild right and moderate left uncovertebral joint hypertrophy. There is moderate and s evere left facet joint hypertrophy. There is mild right and moderate left neural foraminal stenosis. There is mild central canal stenosis with posterior decompression. C5-C6: There is severe bilateral uncovertebral joint hypertrophy. There is mild right and severe left facet joint hypertrophy. There is mild bilateral neural foraminal stenosis. There is mild central ca nal stenosis with posterior decompression. C6-C7: There is severe bilateral uncovertebral joint osteoarthritis. There is mild bilateral facet kortney int osteoarthritis. There is mild bilateral neural foraminal stenosis. There is mild central canal st enosis. C7-T1: There is severe bilateral uncovertebral joint osteoarthritis. There is severe bilateral facet joint osteoarthritis. There is mild bilateral neural foraminal stenosis. There is mild central canal stenosis. IMPRESSION: 1. No fracture. 2. Severe cervical spondylosis. 3. Anterior and posterior fusion from C4 to C6 and at T1-T2. Reviewed, dictated and finalized at location A.
--- NOTE | 2022-07-30 12:21 | ED.WEAKNESS ---
HPI - Weakness General Chief complaint: Weakness Stated complaint: Cx, ams, dehydrated Time Seen by Provider: 07/30/22 12:10 History of Present Illness HPI Narrative: Patient is a 71-year-old female with a history of glioblastoma presenting with weakness. Patient's son is at bedside and helps provide the history. Patient was initially diagnosed with GBM in December 2019. She underwent resection and chemo/radiation. Unfortunately, some of her symptoms returned several weeks ago when she had an outpatient MRI last week which confirmed return of disease. Patient met with her oncologist and is supposed to start chemotherapy today. Unfortunately, the patient's son states that she has been increasingly weak and has been falling repeatedly. States that she had multiple falls last week. She was seen here and was able to go home but unfortunately she continues to require a lot of care. Family is unable to provide this and they are looking for placement. Currently, the patient denies any complaints. She states that she does feel generally weak and she does have intermittent nausea. She denies any new pain, weakness, numbness. No difficulty breathing. Related Data Home Medications Medication Instructions Recorded Confirmed estradiol 0.1 mg/24 hr semiweekly 1 patch transdermal WE 12/18/19 07/30/22 transdermal patch latanoprost 0.005 % eye drops 1 drp EACH EYE HS 11/19/20 07/30/22 ondansetron HCl 8 mg tablet 8 mg PO TID 07/30/22 07/30/22 temozolomide 100 mg capsule 120 mg PO QHS 07/30/22 07/30/22 Allergies Allergy/AdvReac Type Severity Reaction Status Date / Time sulfamethoxazole AdvReac Severe Diarrhea Verified 07/27/22 00:36 [From Bactrim] trimethoprim [From Bactrim] AdvReac Severe Diarrhea Verified 07/27/22 00:36 amoxicillin AdvReac Mild DIARRHEA Verified 07/27/22 00:36 Review of Systems Review of Systems: All systems reviewed & are unremarkable except as noted in HPI and below PMFSH Past Medical History Medical History (Updated 08/02/22 @ 20:56 by Kerline Solis MD) Anxiety Brain cancer Depression DVT (deep venous thrombosis) Fibromyalgia GERD (gastroesophageal reflux disease) Glioblastoma High cholesterol HTN (hypertension) UTI (urinary tract infection) Surgical History Surgical History (Updated 07/30/22 @ 23:09 by April Bearden NP) H/O brain surgery H/O cervical spine surgery H/O colonoscopy H/O foot surgery History of hysterectomy 1991 BSO also Status post trigger finger release Family History Family History Mother Diabetes mellitus Father Colon cancer Social History Social History (Updated 07/30/22 @ 23:11 by April Bearden NP) Social History: The patient lives home alone. She is . She has 2 children. 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 Smoking status: Never smoker Second hand tobacco smoke exposure: No Alcohol intake: never Substance use: never Substance use type: does not use Lack of Transportation: No Lack of Food: Never True Current Housing: I Have Housing Concerned About Future Housing: No Difficulty Paying Gas/Electric Bills: No Difficulty Paying for Meds: No Currently Unemployed: No Education: High School Diploma/GED Difficulty w/ Childcare or Family Care: No Living arrangements: alone Occupation/Education: retired Gender identity (if verbalized by the patient): Female Sexual Orientation (if Verbalized by the Patient): Straight or Heterosexual Spiritual care concerns: No Exam Narrative: GENERAL: Nontoxic, no acute distress, pleasant and cooperative HEAD: Normocephalic, ecchymosis right forehead EYES: PERRLA and EOMI. ENT: Nares clear, no rhinorrhea or epistaxis. Mucous membranes moist. NECK: Supple. CHEST: Clear to auscultation. No respiratory distress. HEART: Regular rate and rhythm. Normal peripheral pulses.
--- NOTE | 2022-07-30 13:01 | PHAR ---
The patient's home chemotherapy meds of Temozolomide 20mg and Temozolomide 100mg have been verified. Cycle per label is 120mg HS for 21 days. 07/30/22 will be day 1.
[2022-07-30 13:31] LABS: Basophils Percent Auto 0.8 % (0.2-1.2); Eosinophils Absolute Auto 0.2 K/mm3 (0-0.3); Eosinophils Percent Auto 4.5 % (0-4.4); Hematocrit 43.9 % (37.0-47.0); Hemoglobin 14.1 g/dL (12.0-15.0); Immature Granulocyte Absolute 0.01 K/mm3 (0.00-0.031); Immature Granulocyte Percent A 0.3 % (0-0.5); Lymphocytes Absolute Auto 0.85 K/mm3 (0.9-3.2); Lymphocytes Percent Auto 22.7 % (18.3-44.2); Mean Corpuscular HGB Conc 32.1 g/dl (32-36); Mean Corpuscular Hemoglobin 27.3 pg (26-34); Mean Corpuscular Volume 84.9 fl (80-100); Mean Platelet Volume 9.3 fl (7.4-10.4); Monocytes Absolute Auto 0.3 K/mm3 (0.1-0.6); Monocytes Percent Auto 7.7 % (2.6-8.5); Neutrophils Absolute Auto 2.4 K/mm3 (1.3-6.7); Platelet Count Result 254 k/mm3 (150-375); Red Blood Count 5.17 M/mm3 (4.2-5.4); Red Cell Distribution Width 16.6 % (11.5-14.5); White Blood Count 3.8 K/mm3 (4.5-10.0)
[2022-07-30 13:33] LABS: Appearance Urine Cloudy (Clear); Bacteria Urine 3+ /hpf; Bilirubin Urine Negative (Negative); Color Urine Yellow (Yellow); Glucose Urine UA Negative (Negative); Hyaline Casts Urine Present /lpf; Ketones Urine Negative (Negative); Leukocyte Esterase Ur 3+ LEU/UL (Negative); Nitrate Urine Positive (Negative); Non Pathogenic Casts 0-2; Protein Urine Negative (Negative); RBC Urine 0-2 /hpf (0-2); Specific Grav Ur 1.011 (1.001-1.035); Squamous Epithelial Cell Urine Occasional /hpf (Few); Urobilinogen Urine 0.2 mg/dL (<2.0); WBC Urine >100 /hpf; pH Urine 5.5 (5.0-9.0)
[2022-07-30] MEDS: ONDANSETRON INJ 4 MG/2 ML VIAL IV PUSH (13:33)
[2022-07-30 13:43] LABS: Add Urine Microscopic? YES
[2022-07-30 13:46] LABS: Alanine Aminotransferase 18 U/L (6-35); Albumin Level 4.4 g/dL (3.5-5.1); Alkaline Phosphatase 95 U/L (38-126); Anion Gap 4 mmol/L (8-16); Aspartate Amino Transferase 26 U/L (14-36); Bilirubin,Total 0.8 mg/dL (0.2-1.3); Blood Urea Nitrogen 12 mg/dL (7-17); Calcium 9.1 mg/dL (8.4-10.2); Carbon Dioxide 29 mmol/L (22-30); Chloride 106 mmol/L (98-107); Estimated Glomerular Filt Rate > 60; Glucose 99 mg/dL (65-110); Potassium 4.2 mmol/L (3.4-5.0); Sodium 139 mmol/L (137-145)
[2022-07-30 13:47] LABS: Influenza A QL RT-PCR Negative (Negative); Influenza B QL RT-PCR Negative (Negative); SARS-CoV-2 RNA PCR Negative (Negative)
--- NOTE | 2022-07-30 14:30 | PC.NURSE ---
Chemo medication given to patient. Unable to scan medication in because [facility] Pharm[facility] notified.
[2022-07-30] MEDS: oxyCODONE HCL (*CRX) 5 MG TAB IR PO (15:01)
--- NOTE | 2022-07-30 18:39 | ADMGEN ---
This patient, Juanita Sotelo, was admitted to Medical Room 248-. Patient/family oriented to hospital policies and general routines including ID bracelet, bed and alarms, visiting hours, pain management, procedures, bathroom and other care routines, personal items, smoking policy, room service/diet, and visiting hours. Information on how to activate the Rapid Response Team has been discussed. Patient/Family are encouraged to report perceived risks to care and to ask questions if they do not understand what they are told or what they should do.
--- NOTE | 2022-07-30 18:54 | PM.IMHP ---
H&P: HPI History of Present Illness Date/Time: 07/30/22 18:54 Chief Complaint: Weakness Narrative: This is a 71-year-old female patient who has a history of glioblastoma. She had been diagnosed with this December of 2019. She underwent resection and chemotherapy radiation. Unfortunately some of her symptoms returned several weeks ago and she had an outpatient MRI last week which confirmed return of disease. The patient met with her oncologist and she had started her oral chemotherapy today. The patient has been increasingly more weak and has been falling repeatedly. She has had multiple falls last week. The patient was seen here in the emergency room on 07/27/2022. She was evaluated after a fall. The patient slipped on some bath water at that time causing her to fall on her face. The patient was return back to home at that time but she still continues to fall so she came back to the emergency room today. Urine was positive for nitrate mucosal site esterase is 3+ wbc's greater than 100. 3+ bacteria. The patient was given Zofran, Rocephin, and oxycodone in the emergency room. The patient is being admitted to observation status on the date of service of 07/30/2022. Review of Systems Review of Systems: All systems reviewed & are unremarkable except as noted in HPI and below Constitutional: Constitutional: Reports as per HPI and Reports no additional constitutional complaints Eyes: Eyes: Reports as per HPI and Reports no additional eye complaints ENT: Reports system reviewed and no additional complaints, except as documented and Reports Normal hearing present Cardiovascular: Cardiovascular: Reports no additional cardiovascular complaints Respiratory: Respiratory: Reports no additional respiratory complaints and Reports no additional respiratory complaints Gastrointestinal: Gastrointestinal: Reports as per HPI and Reports no additional gastrointestinal complaints Musculoskeletal: Musculoskeletal: Reports no additional musculoskeletal complaints Integumentary/Breasts: Skin/Breast: Reports system reviewed and no additional complaints, except as docu and Reports as per HPI Neurologic: Reports system reviewed and no additional complaints, except as documented, Reports as per HPI and Reports Normal hearing present Psychiatric: Psychiatric: Reports no additional psychiatric complaints and Reports as per HPI Endocrine: Endocrine: Reports no additional endocrine complaints Hematologic/Lymphatic: Hematologic/Lymphatic: Reports no additional hematologic/lymphatic complaints Allergic/Immunologic: Allergic/Immunologic: Reports no additional allergic/immunologic complaints [facility] Past Medical History Medical History (Updated 07/30/22 @ 23:17 by April Bearden NP) Anxiety Brain cancer Depression DVT (deep venous thrombosis) Fibromyalgia GERD (gastroesophageal reflux disease) Glioblastoma High cholesterol HTN (hypertension) UTI (urinary tract infection) Surgical History Surgical History (Updated 07/30/22 @ 23:09 by April Bearden NP) H/O brain surgery H/O cervical spine surgery H/O colonoscopy H/O foot surgery History of hysterectomy 1991 BSO also Status post trigger finger release Family History Family History Mother Diabetes mellitus Father Colon cancer Social History Social History (Updated 07/30/22 @ 23:11 by April Bearden NP) Social History: The patient lives home alone. She is . She has 2 children. 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
[2022-07-30] MEDS: ATORVASTATIN 40 MG TABLET PO (20:05)
[2022-07-30] MEDS: LATANOPROST 0.005% OP SOLN 2.5 ML BTL 1 DROP EACH EYE (20:05)
[2022-07-30] MEDS: levETIRAcetam 250 MG TABLET 750 MG PO (20:05)
[2022-07-30] MEDS: oxyCODONE HCL (*CRX) 2.5 MG TAB IR PO (23:10)
[2022-07-31 05:31] VITALS: BP 136/64; PULSE 59; RESP 17; TEMP 36.4; O2SAT 98
[2022-07-31 05:51] LABS: Basophils Percent Auto 0.4 % (0.2-1.2); Eosinophils Absolute Auto 0.2 K/mm3 (0-0.3); Eosinophils Percent Auto 4.3 % (0-4.4); Hematocrit 38.1 % (37.0-47.0); Immature Granulocyte Absolute 0.01 K/mm3 (0.00-0.031); Immature Granulocyte Percent A 0.2 % (0-0.5); Lymphocytes Percent Auto 20.2 % (18.3-44.2); Mean Corpuscular HGB Conc 31.5 g/dl (32-36); Mean Corpuscular Hemoglobin 27.2 pg (26-34); Mean Corpuscular Volume 86.4 fl (80-100); Mean Platelet Volume 9.3 fl (7.4-10.4); Monocytes Absolute Auto 0.4 K/mm3 (0.1-0.6); Monocytes Percent Auto 9.4 % (2.6-8.5); Neutrophils Absolute Auto 2.9 K/mm3 (1.3-6.7); Neutrophils Percent Auto 65.5 % (45.5-73.1); Platelet Count Result 232 k/mm3 (150-375); Red Blood Count 4.41 M/mm3 (4.2-5.4); Red Cell Distribution Width 16.6 % (11.5-14.5); White Blood Count 4.5 K/mm3 (4.5-10.0)
[2022-07-31 06:01] LABS: Lactic Acid Reflex 0.8 mmol/L (0.7-2.0)
[2022-07-31 06:05] LABS: Alanine Aminotransferase 14 U/L (6-35); Albumin Level 3.4 g/dL (3.5-5.1); Alkaline Phosphatase 79 U/L (38-126); Anion Gap 6 mmol/L (8-16); Aspartate Amino Transferase 17 U/L (14-36); Bilirubin,Total 0.5 mg/dL (0.2-1.3); Blood Urea Nitrogen 11 mg/dL (7-17); Calcium 8.1 mg/dL (8.4-10.2); Carbon Dioxide 27 mmol/L (22-30); Chloride 105 mmol/L (98-107); Estimated Glomerular Filt Rate > 60; Glucose 118 mg/dL (65-110); Lipase 86 U/L (23-300); Magnesium 2.1 mg/dL (1.6-2.3); Potassium 3.7 mmol/L (3.4-5.0); Sodium 138 mmol/L (137-145)
--- NOTE | 2022-07-31 09:30 | PM.IMPN ---
Progress Note: A&P Assessment and Plan (1) Frequent falls: Code(s): R29.6 - Repeated falls Status: Acute Assessment and Plan: patient presented reported frequent falls, appear she is fallen 3 times last week PT and OT have are ordered could be secondary to her cancer or UTI consider SNF placement for rehab fall precautions head CT shows stable low-attenuation involving right frontotemporal parietal region and right insula consistent with glioblastoma (2) UTI (urinary tract infection): Code(s): N39.0 - Urinary tract infection, site not specified Status: Acute Assessment and Plan: UA did appear infectious does report some pain and burning with urination continue IV ceftriaxone for now trend urine output urine culture pending adjust antibiotic to sensitivities (3) GERD (gastroesophageal reflux disease): Code(s): K21.9 - Gastro-esophageal reflux disease without esophagitis Status: Acute Assessment and Plan: chronic and stable continue home medications (4) HTN (hypertension): Code(s): I10 - Essential (primary) hypertension Status: Acute Assessment and Plan: current blood pressure is stable at 136/64 Continue with [facility] trend blood pressure adjust therapy as indicated (5) Glioblastoma: Code(s): C71.9 - Malignant neoplasm of brain, unspecified Status: Acute Assessment and Plan: This is chronic finding could be contributing to her frequent falling continue with outpatient follow-up home medications can be continued regarding her chemotherapy if they are brought in by her family Time Spent With Patient Time: 51 minutes 22 minutes with patient walking to the bathroom and helping her with needs Time with patient: Greater than 35 minutes Subjective Date/time seen: 07/31/22929 Interval history: 07/31/22929 patient is currently laying in bed. She stated that she is just achy all over. She rates her pain as 7/10. She also stated that she is pretty weak. She also stated that she had to get up to go the bathroom and when we got up to go the bathroom she did pretty well with her cane she has a little wobbly and when she stood there to try to pulled down her drawers she really did get a little unsteady. 07/30/22? 18:54 This is a 71-year-old female patient who has a history of glioblastoma.? She had been diagnosed with this December of 2019.? She underwent resection and chemotherapy radiation.? Unfortunately some of her symptoms returned several weeks ago and she had an outpatient MRI last week which confirmed return of disease.? The patient met with her oncologist and she had started her oral chemotherapy today.? The patient has been increasingly more weak and has been falling repeatedly.? She has had multiple falls last week.? The patient was seen here in the emergency room on 07/27/2022.? She was evaluated after a fall.? The patient slipped on some bath water at that time causing her to fall on her face.? The patient was return back to home at that time but she still continues to fall so she came back to the emergency room today.? Urine was positive for nitrate mucosal site esterase is 3+ wbc's greater than 100.? 3+ bacteria.? The patient was given Zofran, Rocephin, and oxycodone in the emergency room.? The patient is being admitted to observation status on the date of service of 07/30/2022. Review of Systems Review of Systems: All systems reviewed & are unremarkable except as noted in HPI and below Exam Narrative: General: well-nourished, well-appearing 71-year-old female, sitting up in bed, comfortable, NARD Neuro: awake, alert and oriented x4, speech clear, no focal neuro deficits noted HEENMT: normocephalic, atraumatic, EOMI, sclerae anicteric, moist oral mucosa Respiratory: Clear to auscultation bilaterally witho
[2022-07-31] MEDS: amLODIPine BESYLATE 5 MG TABLET PO (09:47)
[2022-07-31] MEDS: PANTOPRAZOLE 40 MG TABLET PO (09:47)
[2022-07-31 09:48] VITALS: RESP 18; O2SAT 98
[2022-07-31] MEDS: levETIRAcetam 250 MG TABLET 750 MG PO ×2 (09:48→17:00)
[2022-07-31] MEDS: oxyCODONE HCL (*CRX) 2.5 MG TAB IR PO ×3 (10:11→23:56)
[2022-07-31 10:32] VITALS: O2SAT 98
[2022-07-31 14:00] VITALS: BP 134/65; PULSE 68; RESP 16; TEMP 36.4; O2SAT 99
[2022-07-31] MEDS: ONDANSETRON HCL ODT 4 MG TABLET 8 MG PO (20:37)
[2022-07-31] MEDS: guaiFENesin/DEXTROMETHORPHAN 10 ML UDC 5 ML PO (20:39)
[2022-07-31] MEDS: ATORVASTATIN 40 MG TABLET PO (21:09)
[2022-07-31] MEDS: LORATADINE 5 MG TABLET PO (21:09)
[2022-07-31] MEDS: LATANOPROST 0.005% OP SOLN 2.5 ML BTL 1 DROP EACH EYE (21:11)
[2022-07-31 21:53] VITALS: BP 121/54; PULSE 68; RESP 17; TEMP 36.7; O2SAT 99
[2022-08-01 05:17] VITALS: BP 133/56; PULSE 63; RESP 17; TEMP 36.6; O2SAT 97
[2022-08-01 05:38] LABS: Alanine Aminotransferase 14 U/L (6-35); Albumin Level 3.5 g/dL (3.5-5.1); Alkaline Phosphatase 70 U/L (38-126); Anion Gap 5 mmol/L (8-16); Aspartate Amino Transferase 19 U/L (14-36); Bilirubin,Total 0.5 mg/dL (0.2-1.3); Blood Urea Nitrogen 12 mg/dL (7-17); Calcium 8.6 mg/dL (8.4-10.2); Carbon Dioxide 30 mmol/L (22-30); Chloride 105 mmol/L (98-107); Estimated Glomerular Filt Rate 54; Glucose 113 mg/dL (65-110); Magnesium 2.2 mg/dL (1.6-2.3); Potassium 4.1 mmol/L (3.4-5.0); Sodium 140 mmol/L (137-145)
[2022-08-01 05:40] LABS: Basophils Percent Auto 0.7 % (0.2-1.2); Eosinophils Absolute Auto 0.1 K/mm3 (0-0.3); Eosinophils Percent Auto 3.1 % (0-4.4); Hematocrit 37.7 % (37.0-47.0); Hemoglobin 11.8 g/dL (12.0-15.0); Immature Granulocyte Absolute 0.01 K/mm3 (0.00-0.031); Immature Granulocyte Percent A 0.2 % (0-0.5); Lymphocytes Absolute Auto 1.08 K/mm3 (0.9-3.2); Lymphocytes Percent Auto 24.2 % (18.3-44.2); Mean Corpuscular HGB Conc 31.3 g/dl (32-36); Mean Corpuscular Hemoglobin 27.6 pg (26-34); Mean Corpuscular Volume 88.1 fl (80-100); Mean Platelet Volume 9.4 fl (7.4-10.4); Monocytes Absolute Auto 0.5 K/mm3 (0.1-0.6); Monocytes Percent Auto 10.1 % (2.6-8.5); Neutrophils Absolute Auto 2.8 K/mm3 (1.3-6.7); Neutrophils Percent Auto 61.7 % (45.5-73.1); Platelet Count Result 227 k/mm3 (150-375); Red Blood Count 4.28 M/mm3 (4.2-5.4); Red Cell Distribution Width 16.6 % (11.5-14.5); White Blood Count 4.5 K/mm3 (4.5-10.0)
[2022-08-01] MEDS: levETIRAcetam 250 MG TABLET 750 MG PO ×2 (08:17→16:37)
[2022-08-01] MEDS: amLODIPine BESYLATE 5 MG TABLET PO (08:17)
[2022-08-01] MEDS: oxyCODONE HCL (*CRX) 2.5 MG TAB IR PO ×4 (08:18→22:33)
[2022-08-01] MEDS: PANTOPRAZOLE 40 MG TABLET PO (08:18)
[2022-08-01 08:24] VITALS: RESP 18; O2SAT 97
[2022-08-01 10:33] VITALS: O2SAT 97
--- NOTE | 2022-08-01 13:29 | PC.NURSE ---
On 08/01/22, the student, [Sandra Rizo], provided care and completed [facility] documentation on this patient. I have reviewed the student's documentation and agree with the findings.
[2022-08-01 15:01] VITALS: BP 125/59; PULSE 63; RESP 18; TEMP 36.6; O2SAT 97
--- NOTE | 2022-08-01 15:42 | PM.IMPN ---
Progress Note: A&P Assessment and Plan (1) Frequent falls: Code(s): R29.6 - Repeated falls Status: Acute Assessment and Plan: Patient suffered a mechanical fall at home, fell and hit her head on the bathtub Having frequent falls recently, reports 3 falls within the past week Appreciate PT/OT eval Fall precautions implemented May be related to glioblastoma vs UTI May need to consider SNF placement No acute injury sustained, CT and cervical spine CT with no acute findings (2) UTI (urinary tract infection): Code(s): N39.0 - Urinary tract infection, site not specified Status: Acute Assessment and Plan: UA abnormal on presentation and patient complains of dysuria Urine culture with growth of >100k E coli Patient treated with IV ceftriaxone Transition to p.o. cefdinir today Patient remains afebrile, no leukocytosis (3) Glioblastoma: Code(s): C71.9 - Malignant neoplasm of brain, unspecified Status: Acute Assessment and Plan: Patient with history of glioblastoma Head CT showed stable low-attenuation following right frontotemporoparietal region right insula consistent with glioblastoma Continue with outpatient treatment Continue p.o. chemotherapy which is nonformulary, brought in from home (4) GERD (gastroesophageal reflux disease): Code(s): K21.9 - Gastro-esophageal reflux disease without esophagitis Status: Acute Assessment and Plan: No acute issues Continue Protonix (5) HTN (hypertension): Code(s): I10 - Essential (primary) hypertension Status: Acute Assessment and Plan: Blood pressures are stable Continue home amlodipine Monitor blood pressure trends Subjective Date/time seen: 08/01/22 15:42 Interval history: Date of service: 08/01/2022 Juanita Sotelo is a 71-year-old female with a history of hypertension, GERD, DVT, and glioblastoma who is seen in follow-up for UTI. Patient states that she is feeling poorly today, ?like a truck hit me. ? she complains of headache at the same spot where she has a scalp hematoma. She states that her IV is causing discomfort in her arm. She also complains of a strain in her lower back. She denies saddle anesthesia, numbness or tingling of her extremities, no pain in her legs or hips. She has been able to ambulate with a walker today and feels mostly steady doing so. She does complain of dysuria and urinary hesitancy. She denies shortness of breath, cough, or chest pain. Review of Systems Review of Systems: All systems reviewed & are unremarkable except as noted in HPI and below Exam Narrative: General: Well-nourished, well-appearing 71-year-old female, sitting up in a chair, comfortable, NARD Neuro: awake, alert and oriented x4, speech clear, no focal neuro deficits noted HEENMT: normocephalic, small ecchymosis of anterior forehead, EOMI, sclerae anicteric Respiratory: clear to auscultation bilaterally, nonlabored breathing Cardio: regular rate, regular rhythm with S1-S2 Abdomen: nondistended, normoactive bowel sounds, soft, nontender to palpation Extremities: no edema, erythema, or tenderness to palpation Skin: no rashes or lesions, warm and dry Psych: appropriate mood and affect, judgment and insight intact Objective Data Vital Signs Vital Signs: Vital Signs - 24 hr 07/31/22 21:53 08/01/22 05:17 08/01/22 08:24 Temperature 98.1 F 97.9 F Pulse Rate 68 63 Respiratory Rate 17 17 18 Blood Pressure 121/54 L 133/56 L Pulse Oximetry 99 97 97 Oxygen Delivery Room Air 08/01/22 10:15 08/01/22 15:01 Temperature 97.8 F Pulse Rate 63 Respiratory Rate 18 Blood Pressure 125/59 L Pulse Oximetry 97 Oxygen Delivery Room Air Intake/Output Intake/Output: Intake & Output 07/29/22 07/30/22 07/31/22 08/01/22 23:59 23:59 23:59 23:59 Intake Total 150 1400 660 Output Total 200 1200 800 Balance -50 200 -140 Meds/Results
[2022-08-01] MEDS: HYOSCYAMINE SULFATE 0.125 MG TABLET PO (20:10)
[2022-08-01] MEDS: ONDANSETRON HCL ODT 4 MG TABLET 8 MG PO (20:12)
--- NOTE | 2022-08-01 20:15 | PC.NURSE ---
1915 WALKED INTO ROOM AND DAUGHTER YELLING AND UPSET, STATING WE ARE DOING NOTHING FOR HER MOTHER. STATES PT HAS NOT EVEN SEEN A DOCTOR SINCE SHE HAS BEEN HERE AND HOW TERRIBLE [facility] IS. STATES WE ARE ALL INCOMPETENT. 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 EXPLAINED TO PT AND FAMILY THAT ANN IS A HOSPITALIST AND THAT SHE WAS SEEN TODAY. PT THEN STATES OH YEAH I DID SEE SOMEONE. PT C/O LOWER ABDOMINAL PAIN, BLADDER SCANNED OF 253CC, PT UP TO BATHROOM AND VOIDED 250CC. STATES FEEL BETTER. CALLED GAUTAM PEPPER NP AND DISCUSSED SITUATION. ORDERS RECEIVED
[2022-08-01] MEDS: ATORVASTATIN 40 MG TABLET PO (20:54)
[2022-08-01] MEDS: LATANOPROST 0.005% OP SOLN 2.5 ML BTL 1 DROP EACH EYE (20:55)
[2022-08-01 22:00] VITALS: BP 147/71; PULSE 65; RESP 17; TEMP 36.7; O2SAT 99
--- NOTE | 2022-08-01 22:02 | PC.NURSE ---
PT SLEEPING NO DISTRESS NOTED
[2022-08-02] MEDS: HYOSCYAMINE SULFATE 0.125 MG TABLET PO ×3 (01:13→20:59)
--- NOTE | 2022-08-02 03:44 | PC.NURSE ---
PT SLEEPING, NO DISTRESS NOTED
[2022-08-02 04:57] VITALS: BP 130/61; PULSE 64; RESP 17; TEMP 36.6; O2SAT 97
[2022-08-02 05:32] LABS: Hematocrit 37.4 % (37.0-47.0); Hemoglobin 11.8 g/dL (12.0-15.0); Mean Corpuscular HGB Conc 31.6 g/dl (32-36); Mean Corpuscular Hemoglobin 27.1 pg (26-34); Mean Platelet Volume 9.6 fl (7.4-10.4); Platelet Count Result 235 k/mm3 (150-375); Red Blood Count 4.35 M/mm3 (4.2-5.4); Red Cell Distribution Width 16.3 % (11.5-14.5)
[2022-08-02 05:50] LABS: Anion Gap 4 mmol/L (8-16); Blood Urea Nitrogen 11 mg/dL (7-17); Calcium 8.3 mg/dL (8.4-10.2); Carbon Dioxide 28 mmol/L (22-30); Chloride 103 mmol/L (98-107); Estimated Glomerular Filt Rate 54; Glucose 102 mg/dL (65-110); Potassium 4.1 mmol/L (3.4-5.0); Sodium 135 mmol/L (137-145)
--- NOTE | 2022-08-02 06:53 | WPDURCON ---
Assessment and Plan Assessment and plan (1) Chronic cystitis: Code(s): N30.20 - Other chronic cystitis without hematuria Status: Acute Assessment and Plan: Abx. x7 days for current UTI followed by suppressive Keflex 500mg daily. F/U as outpatient for renal u/s and cysto. as previously arranged. Urology Consult Note HPI Date Seen: 08/02/22 Requesting Physician: Lori Manuel PA-C Primary Care Provider: Miguel Cesar, Consult Narrative Narrative: Juanita Sotelo is a 71 year old female, well known to our practice (followed by Dr. Klein and our nurse practitioners) with long history of MART, pelvic pain and recurrent UTI. She was last seen on July 02, 2022 when a urine culture was negative. At that time renal ultrasonography and cystoscopy was scheduled but have yet to be completed. She admitted on this occasion with recurrence of her glioblastoma and frequent falls. In the course of admission she also complains of some suprapubic discomfort and dysuria. Urine culture has grown a pansensitive E coli. Review of Systems Review of Systems: All systems reviewed & are unremarkable except as noted in HPI and below PMFSH Past Medical History Medical History (Updated 08/02/22 @ 06:56 by Poncho Corbett MD) Anxiety Brain cancer Depression DVT (deep venous thrombosis) Fibromyalgia GERD (gastroesophageal reflux disease) Glioblastoma High cholesterol HTN (hypertension) UTI (urinary tract infection) Surgical History Surgical History (Updated 07/30/22 @ 23:09 by April Bearden NP) H/O brain surgery H/O cervical spine surgery H/O colonoscopy H/O foot surgery History of hysterectomy 1991 BSO also Status post trigger finger release Family History Family History Mother Diabetes mellitus Father Colon cancer Social History Social History (Updated 07/30/22 @ 23:11 by April Bearden NP) Social History: The patient lives home alone. She is . She has 2 children. 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 Code status full code Smoking status: Never smoker Second hand tobacco smoke exposure: No Alcohol intake: never Substance use: never Substance use type: does not use Lack of Transportation: No Lack of Food: Never True Current Housing: I Have Housing Concerned About Future Housing: No Difficulty Paying Gas/Electric Bills: No Difficulty Paying for Meds: No Currently Unemployed: No Education: High School Diploma/GED Difficulty w/ Childcare or Family Care: No Living arrangements: alone Occupation/Education: retired Gender identity (if verbalized by the patient): Female Sexual Orientation (if Verbalized by the Patient): Straight or Heterosexual Spiritual care concerns: No Meds Home Medications and Allergies Home Medications Medication Instructions Recorded Confirmed Type estradiol 0.1 mg/24 hr semiweekly 1 patch transdermal WE 12/18/19 07/30/22 History transdermal patch latanoprost 0.005 % eye drops 1 drp EACH EYE HS 11/19/20 07/30/22 History atorvastatin 40 mg tablet 40 mg PO QHS #90 tabs 04/30/22 07/30/22 Rx pantoprazole 40 mg tablet,delayed 40 mg PO DAILY #30 tabs 05/04/22 07/30/22 Rx release amlodipine 10 mg tablet 5 mg PO DAILY #30 tabs 06/01/22 07/30/22 Rx levetiracetam 750 mg tablet 750 mg PO BID #60 tabs 06/01/22 07/30/22 Rx (Keppra) ondansetron HCl 8 mg tablet 8 mg PO TID 07/30/22 07/30/22 History temozolomide 100 mg capsule 120 mg PO QHS 07/30/22 07/30/22 History Allergies Allergy/AdvReac Type Severity Reaction Status Date / Time sulfamethoxazole AdvReac Severe Diarrhea Verified 07/27/22 00:36 [From Bactrim] trimethoprim [From Bactrim] AdvReac Severe Diarrhea Verified 07/27/22 00:36 amoxicillin AdvReac Mild DIARRHEA Verified 07/27/22 00:36 Vital Signs Vital Signs - 24 hr 08/01/22 08:24 08/01/22 10:15 08/01/22 1
[2022-08-02] MEDS: PANTOPRAZOLE 40 MG TABLET PO (09:16)
[2022-08-02] MEDS: amLODIPine BESYLATE 5 MG TABLET PO (09:16)
[2022-08-02 09:18] VITALS: RESP 18; O2SAT 96
[2022-08-02] MEDS: CEFDINIR 300 MG CAPSULE PO ×2 (09:18→21:00)
[2022-08-02] MEDS: levETIRAcetam 250 MG TABLET 750 MG PO ×2 (09:18→16:52)
--- NOTE | 2022-08-02 11:05 | PC.NURSE ---
On 08/02/22, the student, [Elías Cooper], provided care and completed [facility] documentation on this patient. I have reviewed the student's documentation and agree with the findings.
--- NOTE | 2022-08-02 12:49 | PCPTNOTE ---
Patient reports she is tired and 5/10 pain and refused therapy at this time. Patient was educated on the benefits of therapy to improved strength but continued to refuse.
--- NOTE | 2022-08-02 13:14 | PCOTNOTE ---
Attempted to see patient twice this pm. First attempt, PT fitter's assistant coming out of room stated patient just refused. Second attempt, patient refused stating, No, I'm gonna take a nap.
--- NOTE | 2022-08-02 13:43 | PC.NURSE ---
On 08/02/22, the student, [Brett Youngblood], provided care and completed [facility] documentation on this patient. I have reviewed the student's documentation and agree with the findings.
[2022-08-02 13:51] VITALS: BP 133/68; PULSE 64; RESP 16; TEMP 36.8; O2SAT 99
--- NOTE | 2022-08-02 16:06 | PM.IMPN ---
Progress Note: A&P Assessment and Plan (1) Frequent falls: Code(s): R29.6 - Repeated falls Status: Acute Assessment and Plan: Patient suffered a mechanical fall at home, fell and hit her head on the bathtub Having frequent falls recently, reports 3 falls within the past week Appreciate PT/OT eval Fall precautions implemented May be related to glioblastoma vs UTI No acute injury sustained, CT and cervical spine CT with no acute findings Planning for SNF placement, awaiting approval (2) UTI (urinary tract infection): Code(s): N39.0 - Urinary tract infection, site not specified Status: Acute Assessment and Plan: UA abnormal on presentation and patient complains of dysuria Urine culture with growth of >100k E coli Patient treated with IV ceftriaxone Transitioned to p.o. cefdinir on 08/01. Plan to continue for 7 days of treatment Per Urology recommendations, will transition to Keflex 500 mg daily for suppressive therapy Patient remains afebrile, no leukocytosis (3) Glioblastoma: Code(s): C71.9 - Malignant neoplasm of brain, unspecified Status: Acute Assessment and Plan: Patient with history of glioblastoma Head CT showed stable low-attenuation following right frontotemporoparietal region right insula consistent with glioblastoma Continue with outpatient treatment Continue p.o. chemotherapy which is nonformulary, brought in from home (4) GERD (gastroesophageal reflux disease): Code(s): K21.9 - Gastro-esophageal reflux disease without esophagitis Status: Acute Assessment and Plan: No acute issues Continue Protonix (5) HTN (hypertension): Code(s): I10 - Essential (primary) hypertension Status: Acute Assessment and Plan: Blood pressures are stable Continue home amlodipine Monitor blood pressure trends Subjective Date/time seen: 08/02/22 16:06 Interval history: Date of service: 08/01/2022 Juanita Sotelo is a 71-year-old female with a history of hypertension, GERD, DVT, and glioblastoma who is seen in follow-up for UTI. She is feeling better today. Almost feels back to her usual state of health. She has no complaints. She is awaiting placement to rehab. Patient feels that she is not currently equipped to care for herself at home independently due to issues with mobility. Review of Systems Review of Systems: All systems reviewed & are unremarkable except as noted in HPI and below Exam Narrative: General: Well-nourished, well-appearing 71-year-old female, sitting up in a chair, comfortable, NARD Neuro: awake, alert and oriented x4, speech clear, no focal neuro deficits noted HEENMT: normocephalic, small ecchymosis of anterior forehead, EOMI, sclerae anicteric Respiratory: clear to auscultation bilaterally, nonlabored breathing Cardio: regular rate, regular rhythm with S1-S2 Abdomen: nondistended, normoactive bowel sounds, soft, nontender to palpation Extremities: no edema, erythema, or tenderness to palpation Skin: no rashes or lesions, warm and dry Psych: appropriate mood and affect, judgment and insight intact Objective Data Vital Signs Vital Signs: Vital Signs - 24 hr 08/01/22 22:00 08/02/22 04:57 08/02/22 09:18 Temperature 98.0 F 97.8 F Pulse Rate 65 64 Respiratory Rate 17 17 18 Blood Pressure 147/71 H 130/61 Pulse Oximetry 99 97 96 Oxygen Delivery Room Air 08/02/22 10:20 08/02/22 13:51 Temperature 98.2 F Pulse Rate 64 Respiratory Rate 16 Blood Pressure 133/68 Pulse Oximetry 99 Oxygen Delivery Room Air Intake/Output Intake/Output: Intake & Output 07/30/22 07/31/22 08/01/22 08/02/22 23:59 23:59 23:59 23:59 Intake Total 150 1400 1500 730 Output Total 200 1200 1900 1600 Balance -50 200 -400 -870 Meds/Results Medications: Active Medications Generic Name Dose Route Start Last Admin Trade Name Freq PRN Reason Stop Dose Admin Am
[2022-08-02] MEDS: ONDANSETRON HCL ODT 4 MG TABLET 8 MG PO (20:43)
[2022-08-02] MEDS: ATORVASTATIN 40 MG TABLET PO (21:00)
[2022-08-02] MEDS: LATANOPROST 0.005% OP SOLN 2.5 ML BTL 1 DROP EACH EYE (21:00)
[2022-08-02] MEDS: oxyCODONE HCL (*CRX) 2.5 MG TAB IR PO (21:53)
[2022-08-02 22:00] VITALS: BP 122/55; PULSE 67; RESP 21; TEMP 36.3; O2SAT 100
[2022-08-03] MEDS: HYOSCYAMINE SULFATE 0.125 MG TABLET PO ×3 (02:28→19:39)
[2022-08-03 05:13] LABS: Hematocrit 40.5 % (37.0-47.0); Hemoglobin 12.9 g/dL (12.0-15.0); Mean Corpuscular HGB Conc 31.9 g/dl (32-36); Mean Corpuscular Hemoglobin 27.8 pg (26-34); Mean Corpuscular Volume 87.3 fl (80-100); Mean Platelet Volume 9.3 fl (7.4-10.4); Platelet Count Result 270 k/mm3 (150-375); Red Blood Count 4.64 M/mm3 (4.2-5.4); Red Cell Distribution Width 16.7 % (11.5-14.5); White Blood Count 5.1 K/mm3 (4.5-10.0)
[2022-08-03 05:33] LABS: Anion Gap 7 mmol/L (8-16); Blood Urea Nitrogen 17 mg/dL (7-17); Calcium 8.9 mg/dL (8.4-10.2); Carbon Dioxide 30 mmol/L (22-30); Chloride 102 mmol/L (98-107); Estimated Glomerular Filt Rate 49; Glucose 101 mg/dL (65-110); Potassium 4.1 mmol/L (3.4-5.0); Sodium 139 mmol/L (137-145)
[2022-08-03 06:00] VITALS: BP 134/69; PULSE 60; RESP 20; TEMP 36.2; O2SAT 98
[2022-08-03 08:30] VITALS: BP 121/61; PULSE 58; RESP 18; O2SAT 100
[2022-08-03] MEDS: levETIRAcetam 250 MG TABLET 750 MG PO ×2 (08:58→17:38)
[2022-08-03] MEDS: PANTOPRAZOLE 40 MG TABLET PO (08:59)
[2022-08-03] MEDS: CEFDINIR 300 MG CAPSULE PO ×2 (08:59→21:13)
[2022-08-03] MEDS: amLODIPine BESYLATE 5 MG TABLET PO (08:59)
--- NOTE | 2022-08-03 11:35 | PC.NURSE ---
On 08/03/22, the student, [Brett Youngblood], provided care and completed [facility] documentation on this patient. I have reviewed the student's documentation and agree with the findings.
[2022-08-03] MEDS: oxyCODONE HCL (*CRX) 2.5 MG TAB IR PO ×2 (11:59→19:39)
[2022-08-03 14:25] VITALS: BP 137/60; PULSE 64; RESP 17; TEMP 36.6; O2SAT 97
--- NOTE | 2022-08-03 15:14 | PM.IMPN ---
Progress Note: A&P Assessment and Plan (1) Frequent falls: Code(s): R29.6 - Repeated falls Status: Acute Assessment and Plan: Patient suffered a mechanical fall at home, fell and hit her head on the bathtub Having frequent falls recently, reports 3 falls within the past week Appreciate PT/OT eval Fall precautions implemented May be related to glioblastoma vs UTI No acute injury sustained, CT and cervical spine CT with no acute findings Planning for SNF placement, awaiting approval (2) UTI (urinary tract infection): Code(s): N39.0 - Urinary tract infection, site not specified Status: Acute Assessment and Plan: UA abnormal on presentation and patient complains of dysuria Urine culture with growth of >100k E coli Patient treated with IV ceftriaxone Transitioned to p.o. cefdinir on 08/01. Plan to continue for 7 days of treatment Per Urology recommendations, will transition to Keflex 500 mg daily following cefdinir for suppressive therapy Patient remains afebrile, no leukocytosis (3) Glioblastoma: Code(s): C71.9 - Malignant neoplasm of brain, unspecified Status: Acute Assessment and Plan: Patient with history of glioblastoma Head CT showed stable low-attenuation following right frontotemporoparietal region right insula consistent with glioblastoma Continue with outpatient treatment Continue p.o. chemotherapy which is nonformulary, brought in from home (4) GERD (gastroesophageal reflux disease): Code(s): K21.9 - Gastro-esophageal reflux disease without esophagitis Status: Acute Assessment and Plan: No acute issues Continue Protonix (5) HTN (hypertension): Code(s): I10 - Essential (primary) hypertension Status: Acute Assessment and Plan: Blood pressures are stable Continue home amlodipine Monitor blood pressure trends Subjective Date/time seen: 08/03/22 15:14 Interval history: Date of service: 08/01/2022 Juanita Sotelo is a 71-year-old female with a history of hypertension, GERD, DVT, and glioblastoma who is seen in follow-up for UTI. she is feeling today. She has no complaints. Tolerating her diet. Sleeping well. Participating in therapy. Denies urinary symptoms. Denies dizziness or lightheadedness. Review of Systems Review of Systems: All systems reviewed & are unremarkable except as noted in HPI and below Exam Narrative: General: Well-nourished, well-appearing 71-year-old female, sitting up in a chair, comfortable, NARD Neuro: awake, alert and oriented x4, speech clear, no focal neuro deficits noted HEENMT: normocephalic, small ecchymosis of anterior forehead, EOMI, sclerae anicteric Respiratory: clear to auscultation bilaterally, nonlabored breathing Cardio: regular rate, regular rhythm with S1-S2 Abdomen: nondistended, normoactive bowel sounds, soft, nontender to palpation Extremities: no edema, erythema, or tenderness to palpation Skin: no rashes or lesions, warm and dry Psych: appropriate mood and affect, judgment and insight intact Objective Data Vital Signs Vital Signs: Vital Signs - 24 hr 08/02/22 22:00 08/02/22 20:00 08/03/22 06:00 Temperature 97.4 F L 97.2 F L Pulse Rate 67 60 Respiratory Rate 21 H 20 Blood Pressure 122/55 L 134/69 Pulse Oximetry 100 98 Oxygen Delivery Room Air 08/03/22 08:30 08/03/22 14:25 Temperature 97.8 F Pulse Rate 58 L 64 Respiratory Rate 18 17 Blood Pressure 121/61 137/60 Pulse Oximetry 100 97 Oxygen Delivery Intake/Output Intake/Output: Intake & Output 07/31/22 08/01/22 08/02/22 08/03/22 23:59 23:59 23:59 23:59 Intake Total 1400 1500 1520 1540 Output Total 1200 1900 2200 1000 Balance 200 -400 -680 540 Meds/Results Medications: Active Medications Generic Name Dose Route Start Last Admin Trade Name Freq PRN Reason Stop Dose Admin Amlodipine Besylate 5 mg 07/31/22 09:00 08/03/22 08:59
[2022-08-03] MEDS: polyethylene glycoL 3350 17 GM POWD.PACK PO (18:38)
[2022-08-03 19:31] VITALS: BP 137/57; PULSE 67; RESP 18; TEMP 36.4; O2SAT 97
[2022-08-03] MEDS: ONDANSETRON HCL ODT 4 MG TABLET 8 MG PO (21:01)
[2022-08-03] MEDS: ATORVASTATIN 40 MG TABLET PO (21:13)
[2022-08-03] MEDS: LATANOPROST 0.005% OP SOLN 2.5 ML BTL 1 DROP EACH EYE (21:13)
[2022-08-04 05:41] VITALS: BP 120/61; PULSE 63; RESP 18; TEMP 36.7; O2SAT 97
[2022-08-04] MEDS: oxyCODONE HCL (*CRX) 2.5 MG TAB IR PO ×3 (08:06→20:45)
[2022-08-04] MEDS: levETIRAcetam 250 MG TABLET 750 MG PO ×2 (08:08→16:46)
[2022-08-04] MEDS: CEFDINIR 300 MG CAPSULE PO ×2 (08:08→20:09)
[2022-08-04] MEDS: polyethylene glycoL 3350 17 GM POWD.PACK PO (08:08)
[2022-08-04] MEDS: amLODIPine BESYLATE 5 MG TABLET PO (08:08)
[2022-08-04] MEDS: PANTOPRAZOLE 40 MG TABLET PO (08:08)
--- NOTE | 2022-08-04 12:21 | PM.IMPN ---
Progress Note: A&P Assessment and Plan (1) Frequent falls: Code(s): R29.6 - Repeated falls Status: Acute Assessment and Plan: Patient suffered a mechanical fall at home, fell and hit her head on the bathtub Having frequent falls recently, reports 3 falls within the past week Appreciate PT/OT eval Fall precautions implemented May be related to glioblastoma vs UTI No acute injury sustained, CT and cervical spine CT with no acute findings Planning for SNF placement, awaiting insurance authorization (2) UTI (urinary tract infection): Code(s): N39.0 - Urinary tract infection, site not specified Status: Acute Assessment and Plan: UA abnormal on presentation and patient complains of dysuria Urine culture with growth of >100k E coli Patient treated with IV ceftriaxone Transitioned to p.o. cefdinir on 08/01. Plan to continue for 7 days of treatment. Last dose on 08/05/2022 Per Urology recommendations, will transition to Keflex 500 mg daily following cefdinir for suppressive therapy Patient remains afebrile, no leukocytosis (3) Glioblastoma: Code(s): C71.9 - Malignant neoplasm of brain, unspecified Status: Acute Assessment and Plan: Patient with history of glioblastoma Head CT showed stable low-attenuation following right frontotemporoparietal region right insula consistent with glioblastoma Continue with outpatient treatment Continue p.o. chemotherapy which is nonformulary, brought in from home (4) GERD (gastroesophageal reflux disease): Code(s): K21.9 - Gastro-esophageal reflux disease without esophagitis Status: Acute Assessment and Plan: No acute issues Continue Protonix (5) HTN (hypertension): Code(s): I10 - Essential (primary) hypertension Status: Acute Assessment and Plan: Blood pressures are stable Continue home amlodipine Monitor blood pressure trends Subjective Date/time seen: 08/04/22 12:21 Interval history: Date of service: 08/04/2022 Juanita Sotelo is a 71-year-old female with a history of hypertension, GERD, DVT, and glioblastoma who is seen in follow-up for UTI. She is feeling really well today. She has no complaints. She has been able to get up out of bed and is tolerating activity. She is eating and drinking well. She has no urinary symptoms. No additional concerns. Review of Systems Review of Systems: All systems reviewed & are unremarkable except as noted in HPI and below Exam Narrative: General: Well-nourished, well-appearing 71-year-old female, sitting up in a chair, comfortable, NARD Neuro: awake, alert and oriented x4, speech clear, no focal neuro deficits noted HEENMT: normocephalic, small ecchymosis of anterior forehead, EOMI, sclerae anicteric Respiratory: clear to auscultation bilaterally, nonlabored breathing Cardio: regular rate, regular rhythm with S1-S2 Abdomen: nondistended, normoactive bowel sounds, soft, nontender to palpation Extremities: no edema, erythema, or tenderness to palpation Skin: no rashes or lesions, warm and dry Psych: appropriate mood and affect, judgment and insight intact Objective Data Vital Signs Vital Signs: Vital Signs - 24 hr 08/03/22 14:25 08/03/22 19:31 08/03/22 20:00 Temperature 97.8 F 97.5 F L Pulse Rate 64 67 Respiratory Rate 17 18 Blood Pressure 137/60 137/57 L Pulse Oximetry 97 97 Oxygen Delivery Room Air 08/04/22 05:41 Temperature 98.0 F Pulse Rate 63 Respiratory Rate 18 Blood Pressure 120/61 Pulse Oximetry 97 Oxygen Delivery Intake/Output Intake/Output: Intake & Output 08/01/22 08/02/22 08/03/22 08/04/22 23:59 23:59 23:59 23:59 Intake Total 1500 1520 2440 Output Total 1900 2200 1400 400 Balance -400 -680 1040 -400 Meds/Results Medications: Active Medications Generic Name Dose Route Start Last Admin Trade Name Freq PRN Reason Stop Dose Admin Amlodipine Besylate
[2022-08-04 14:48] VITALS: BP 119/57; PULSE 67; RESP 14; TEMP 36.5; O2SAT 96
[2022-08-04] MEDS: CALCIUM CARBONATE (TUMS) 500 MG (200 MG ELEMENTAL) PO (18:07)
[2022-08-04] MEDS: ONDANSETRON HCL ODT 4 MG TABLET 8 MG PO (19:36)
[2022-08-04 19:43] VITALS: BP 131/66; PULSE 71; RESP 18; TEMP 36.6; O2SAT 97
[2022-08-04] MEDS: LATANOPROST 0.005% OP SOLN 2.5 ML BTL 1 DROP EACH EYE (20:09)
[2022-08-04] MEDS: ATORVASTATIN 40 MG TABLET PO (20:10)
[2022-08-05] MEDS: oxyCODONE HCL (*CRX) 2.5 MG TAB IR PO (03:39)
[2022-08-05 06:00] VITALS: BP 134/58; PULSE 62; RESP 18; TEMP 36.4; O2SAT 96
[2022-08-05 07:12] LABS: Anion Gap 5 mmol/L (8-16); Blood Urea Nitrogen 20 mg/dL (7-17); Calcium 8.4 mg/dL (8.4-10.2); Carbon Dioxide 29 mmol/L (22-30); Chloride 104 mmol/L (98-107); Estimated Glomerular Filt Rate > 60; Glucose 110 mg/dL (65-110); Potassium 3.9 mmol/L (3.4-5.0); Sodium 138 mmol/L (137-145)
[2022-08-05] MEDS: CEFDINIR 300 MG CAPSULE PO ×2 (08:10→21:14)
[2022-08-05] MEDS: amLODIPine BESYLATE 5 MG TABLET PO (08:10)
[2022-08-05] MEDS: PANTOPRAZOLE 40 MG TABLET PO (08:11)
[2022-08-05] MEDS: levETIRAcetam 250 MG TABLET 750 MG PO ×2 (08:11→16:46)
[2022-08-05] MEDS: polyethylene glycoL 3350 17 GM POWD.PACK PO (08:11)
--- NOTE | 2022-08-05 13:57 | PM.IMPN ---
Progress Note: A&P Assessment and Plan (1) Frequent falls: Code(s): R29.6 - Repeated falls Status: Acute Assessment and Plan: Patient suffered a mechanical fall at home, fell and hit her head on the bathtub Having frequent falls recently, reports 3 falls within the past week Appreciate PT/OT eval Fall precautions implemented May be related to glioblastoma vs UTI No acute injury sustained, CT and cervical spine CT with no acute findings Planning for SNF placement, awaiting insurance authorization (2) UTI (urinary tract infection): Code(s): N39.0 - Urinary tract infection, site not specified Status: Acute Assessment and Plan: UA abnormal on presentation and patient complains of dysuria Urine culture with growth of >100k E coli Patient treated with IV ceftriaxone Transitioned to p.o. cefdinir on 08/01. Plan to continue for 7 days of treatment. Last dose this evening Per Urology recommendations, will transition to Keflex 500 mg daily following cefdinir for suppressive therapy Patient remains afebrile, no leukocytosis (3) Glioblastoma: Code(s): C71.9 - Malignant neoplasm of brain, unspecified Status: Acute Assessment and Plan: Patient with history of glioblastoma Head CT showed stable low-attenuation following right frontotemporoparietal region right insula consistent with glioblastoma Continue with outpatient treatment Continue p.o. chemotherapy which is nonformulary, brought in from home (4) GERD (gastroesophageal reflux disease): Code(s): K21.9 - Gastro-esophageal reflux disease without esophagitis Status: Acute Assessment and Plan: No acute issues Continue Protonix (5) HTN (hypertension): Code(s): I10 - Essential (primary) hypertension Status: Acute Assessment and Plan: Blood pressures are stable Continue home amlodipine Monitor blood pressure trends Subjective Date/time seen: 08/05/22 13:57 Interval history: Date of service: 08/04/2022 Juanita Sotelo is a 71-year-old female with a history of hypertension, GERD, DVT, and glioblastoma who is seen in follow-up for UTI. She is feeling well. No issues overnight. No new complaints today. Awaiting placement for rehab Review of Systems Review of Systems: All systems reviewed & are unremarkable except as noted in HPI and below Exam Narrative: General: Well-nourished, well-appearing 71-year-old female, sitting up in a chair, comfortable, NARD Neuro: awake, alert and oriented x4, speech clear, no focal neuro deficits noted HEENMT: normocephalic, atraumatic, EOMI, sclerae anicteric Respiratory: clear to auscultation bilaterally, nonlabored breathing Cardio: regular rate, regular rhythm with S1-S2 Abdomen: nondistended, normoactive bowel sounds, soft, nontender to palpation Extremities: no edema, erythema, or tenderness to palpation Skin: no rashes or lesions, warm and dry Psych: appropriate mood and affect, judgment and insight intact Objective Data Vital Signs Vital Signs: Vital Signs - 24 hr 08/04/22 14:48 08/04/22 19:43 08/05/22 06:00 Temperature 97.7 F 97.8 F 97.5 F L Pulse Rate 67 71 62 Respiratory Rate 14 18 18 Blood Pressure 119/57 L 131/66 134/58 L Pulse Oximetry 96 97 96 Intake/Output Intake/Output: Intake & Output 08/02/22 08/03/22 08/04/22 08/05/22 23:59 23:59 23:59 23:59 Intake Total 1520 2440 1120 240 Output Total 2200 1400 1500 550 Balance -680 1046 -380 -310 Meds/Results Medications: Active Medications Generic Name Dose Route Start Last Admin Trade Name Nicholasq PRN Reason Stop Dose Admin Amlodipine Besylate 5 mg 07/31/22 09:00 08/05/22 08:10 Amlodipine Besylate 5 Mg Tablet PO 5 mg DAILY NELSON Administration Atorvastatin Calcium 40 mg 07/30/22 21:00 08/04/22 20:10 Atorvastatin 40 Mg Tablet PO 40 mg QHS NELSON Administration Calcium Carbonate 200 mg 08/04/22 17:45 04
[2022-08-05 13:58] VITALS: BP 109/55; PULSE 68; RESP 16; TEMP 36.6; O2SAT 99
[2022-08-05 19:20] VITALS: BP 134/70; PULSE 72; RESP 18; TEMP 36.9; O2SAT 97
[2022-08-05] MEDS: ONDANSETRON HCL ODT 4 MG TABLET 8 MG PO (21:07)
[2022-08-05] MEDS: HYOSCYAMINE SULFATE 0.125 MG TABLET PO (21:14)
[2022-08-05] MEDS: ATORVASTATIN 40 MG TABLET PO (21:14)
[2022-08-05] MEDS: LATANOPROST 0.005% OP SOLN 2.5 ML BTL 1 DROP EACH EYE (21:14)
[2022-08-06] MEDS: oxyCODONE HCL (*CRX) 2.5 MG TAB IR PO ×3 (00:32→18:19)
[2022-08-06 06:00] VITALS: BP 155/67; PULSE 62; RESP 18; TEMP 36.3; O2SAT 100
[2022-08-06 09:06] VITALS: BP 127/72; PULSE 64; RESP 14; O2SAT 99
[2022-08-06] MEDS: amLODIPine BESYLATE 5 MG TABLET PO (09:08)
[2022-08-06] MEDS: polyethylene glycoL 3350 17 GM POWD.PACK PO (09:08)
[2022-08-06] MEDS: levETIRAcetam 250 MG TABLET 750 MG PO ×2 (09:08→18:18)
[2022-08-06] MEDS: CEPHALEXIN 500 MG CAPSULE PO (09:08)
[2022-08-06] MEDS: PANTOPRAZOLE 40 MG TABLET PO (09:08)
--- NOTE | 2022-08-06 11:27 | PCNWS ---
Weekly nutritional screen. Patient is tolerating current diet with adequate intake. Regular diet intakes 50-90% No weight loss reported. No nutritional needs at this time. Awaiting rehab placement.
[2022-08-06] MEDS: HYOSCYAMINE SULFATE 0.125 MG TABLET PO ×2 (13:27→18:19)
[2022-08-06 13:50] VITALS: BP 114/50; PULSE 51; RESP 16; TEMP 36.3; O2SAT 96
--- NOTE | 2022-08-06 16:47 | PM.IMPN ---
Progress Note: A&P Assessment and Plan (1) Frequent falls: Code(s): R29.6 - Repeated falls Status: Acute Assessment and Plan: Patient suffered a mechanical fall at home, fell and hit her head on the bathtub Having frequent falls recently, reports 3 falls within the past week Appreciate PT/OT eval Fall precautions implemented May be related to glioblastoma vs UTI No acute injury sustained, CT and cervical spine CT with no acute findings Planning for SNF placement, awaiting insurance authorization (2) UTI (urinary tract infection): Code(s): N39.0 - Urinary tract infection, site not specified Status: Acute Assessment and Plan: UA abnormal on presentation and patient complains of dysuria Urine culture with growth of >100k E coli Patient treated with IV ceftriaxone and then transitioned to p.o. cefdinir. Completed a 7 day course on 08/05/22 Per Urology recommendations, she has been started on Keflex 500 mg daily for suppressive therapy Patient remains afebrile, no leukocytosis (3) Glioblastoma: Code(s): C71.9 - Malignant neoplasm of brain, unspecified Status: Acute Assessment and Plan: Patient with history of glioblastoma Head CT showed stable low-attenuation following right frontotemporoparietal region right insula consistent with glioblastoma Continue with outpatient treatment Continue p.o. chemotherapy which is nonformulary, brought in from home (4) GERD (gastroesophageal reflux disease): Code(s): K21.9 - Gastro-esophageal reflux disease without esophagitis Status: Acute Assessment and Plan: No acute issues Continue Protonix (5) HTN (hypertension): Code(s): I10 - Essential (primary) hypertension Status: Acute Assessment and Plan: Blood pressures are stable Continue home amlodipine Monitor blood pressure trends Subjective Date/time seen: 08/06/22 16:47 Interval history: Date of service: 08/04/2022 Juanita Sotelo is a 71-year-old female with a history of hypertension, GERD, DVT, and glioblastoma who is seen in follow-up for UTI. She is feeling well. no concerns this time. She continues to endorse weakness and feels that she needs rehab placement. Awaiting insurance authorization Review of Systems Review of Systems: All systems reviewed & are unremarkable except as noted in HPI and below Exam Narrative: General: Well-nourished, well-appearing 71-year-old female, sitting up in a chair, comfortable, NARD Neuro: awake, alert and oriented x4, speech clear, no focal neuro deficits noted HEENMT: normocephalic, atraumatic, EOMI, sclerae anicteric Respiratory: clear to auscultation bilaterally, nonlabored breathing Cardio: regular rate, regular rhythm with S1-S2 Abdomen: nondistended, normoactive bowel sounds, soft, nontender to palpation Extremities: no edema, erythema, or tenderness to palpation Skin: no rashes or lesions, warm and dry Psych: appropriate mood and affect, judgment and insight intact Objective Data Vital Signs Vital Signs: Vital Signs - 24 hr 08/05/22 19:20 08/05/22 21:05 08/06/22 06:00 Temperature 98.4 F 97.4 F L Pulse Rate 72 62 Respiratory Rate 18 18 Blood Pressure 134/70 155/67 H Pulse Oximetry 97 100 Oxygen Delivery Room Air 08/06/22 09:06 08/06/22 09:05 08/06/22 13:50 Temperature 97.3 F L Pulse Rate 64 51 L Respiratory Rate 14 16 Blood Pressure 127/72 114/50 L Pulse Oximetry 99 96 Oxygen Delivery Room Air Intake/Output Intake/Output: Intake & Output 08/03/22 08/04/22 08/05/22 08/06/22 23:59 23:59 23:59 23:59 Intake Total 2440 1120 1520 480 Output Total 1400 1500 1750 500 Balance 1040 -380 -230 -20 Meds/Results Medications: Active Medications Generic Name Dose Route Start Last Admin Trade Name Freq PRN Reason Stop Dose Admin Amlodipine Besylate 5 mg 07/31/22 09:00 08/06/22 09:08 Amlodipine Besylate
[2022-08-06] MEDS: ONDANSETRON HCL ODT 4 MG TABLET 8 MG PO (18:19)
[2022-08-06] MEDS: LATANOPROST 0.005% OP SOLN 2.5 ML BTL 1 DROP EACH EYE (20:19)
[2022-08-06] MEDS: ATORVASTATIN 40 MG TABLET PO (20:19)
[2022-08-06] MEDS: CALCIUM CARBONATE (TUMS) 500 MG (200 MG ELEMENTAL) PO (20:39)
[2022-08-06 22:39] VITALS: BP 125/56; PULSE 64; RESP 18; TEMP 36.4; O2SAT 97
[2022-08-07] MEDS: oxyCODONE HCL (*CRX) 2.5 MG TAB IR PO ×2 (03:52→20:43)
[2022-08-07] MEDS: HYOSCYAMINE SULFATE 0.125 MG TABLET PO (05:50)
[2022-08-07 06:49] VITALS: BP 126/60; PULSE 63; RESP 18; TEMP 36.3; O2SAT 96
[2022-08-07] MEDS: CEPHALEXIN 500 MG CAPSULE PO (08:04)
[2022-08-07] MEDS: PANTOPRAZOLE 40 MG TABLET PO (08:05)
[2022-08-07] MEDS: levETIRAcetam 250 MG TABLET 750 MG PO ×2 (08:05→17:14)
[2022-08-07] MEDS: polyethylene glycoL 3350 17 GM POWD.PACK PO (08:06)
[2022-08-07 08:12] VITALS: BP 113/53; PULSE 59; O2SAT 98
[2022-08-07 14:19] VITALS: BP 132/60; PULSE 75; RESP 18; TEMP 36.8; O2SAT 94
--- NOTE | 2022-08-07 16:33 | PM.IMPN ---
Progress Note: A&P Assessment and Plan (1) Frequent falls: Code(s): R29.6 - Repeated falls Status: Acute Assessment and Plan: Patient suffered a mechanical fall at home, fell and hit her head on the bathtub Having frequent falls recently, reports 3 falls within the past week Appreciate PT/OT eval Fall precautions implemented May be related to glioblastoma vs UTI No acute injury sustained, CT and cervical spine CT with no acute findings Planning for SNF placement, awaiting insurance authorization If SNF denial, may need to consider home health. Care coordination following (2) UTI (urinary tract infection): Code(s): N39.0 - Urinary tract infection, site not specified Status: Acute Assessment and Plan: UA abnormal on presentation and patient complains of dysuria Urine culture with growth of >100k E coli Patient treated with IV ceftriaxone and then transitioned to p.o. cefdinir. Completed a 7 day course on 08/05/22 Per Urology recommendations, she has been started on Keflex 500 mg daily for suppressive therapy Patient remains afebrile, no leukocytosis (3) Glioblastoma: Code(s): C71.9 - Malignant neoplasm of brain, unspecified Status: Acute Assessment and Plan: Patient with history of glioblastoma Head CT showed stable low-attenuation following right frontotemporoparietal region right insula consistent with glioblastoma Continue with outpatient treatment Continue p.o. chemotherapy which is nonformulary, brought in from home (4) GERD (gastroesophageal reflux disease): Code(s): K21.9 - Gastro-esophageal reflux disease without esophagitis Status: Acute Assessment and Plan: No acute issues Continue Protonix (5) HTN (hypertension): Code(s): I10 - Essential (primary) hypertension Status: Acute Assessment and Plan: Blood pressures are stable Continue home amlodipine Monitor blood pressure trends Subjective Date/time seen: 08/07/22 16:33 Interval history: Date of service: 08/07/2022 Juanita Sotelo is a 71-year-old female with a history of hypertension, GERD, DVT, and glioblastoma who is seen in follow-up for UTI. She is feeling well today. She has no complaints. States that she feels tired heard. She is tolerating her diet. No urinary symptoms. Review of Systems Review of Systems: All systems reviewed & are unremarkable except as noted in HPI and below Exam Narrative: General: Well-nourished, well-appearing 71-year-old female, sitting up in bed, comfortable, NARD Neuro: awake, alert and oriented x4, speech clear, no focal neuro deficits noted HEENMT: normocephalic, atraumatic, EOMI, sclerae anicteric Respiratory: clear to auscultation bilaterally, nonlabored breathing Cardio: regular rate, regular rhythm with S1-S2 Abdomen: nondistended, normoactive bowel sounds, soft, nontender to palpation Extremities: no edema, erythema, or tenderness to palpation Skin: no rashes or lesions, warm and dry Psych: appropriate mood and affect, judgment and insight intact Objective Data Vital Signs Vital Signs: Vital Signs - 24 hr 08/06/22 22:39 08/06/22 20:10 08/07/22 06:49 Temperature 97.5 F L 97.4 F L Pulse Rate 64 63 Respiratory Rate 18 18 Blood Pressure 125/56 L 126/60 Pulse Oximetry 97 96 Oxygen Delivery Room Air 08/07/22 08:12 08/07/22 08:00 08/07/22 14:19 Temperature 98.2 F Pulse Rate 59 L 75 Respiratory Rate 18 Blood Pressure 113/53 L 132/60 Pulse Oximetry 98 94 Oxygen Delivery Room Air Intake/Output Intake/Output: Intake & Output 08/04/22 08/05/22 08/06/22 08/07/22 23:59 23:59 23:59 23:59 Intake Total 1120 1520 1200 860 Output Total 1500 1750 500 700 Balance -380 -230 700 160 Meds/Results Medications: Active Medications Generic Name Dose Route Start Last Admin Trade Name Freq PRN Reason Stop Dose Admin Amlodipine Besylate 5 mg
[2022-08-07] MEDS: ONDANSETRON HCL ODT 4 MG TABLET 8 MG PO (18:37)
[2022-08-07] MEDS: ATORVASTATIN 40 MG TABLET PO (20:43)
[2022-08-07] MEDS: LATANOPROST 0.005% OP SOLN 2.5 ML BTL 1 DROP EACH EYE (20:43)
[2022-08-07 20:44] VITALS: BP 142/57; PULSE 68; RESP 18; TEMP 36; O2SAT 98
[2022-08-08 03:12] VITALS: BP 141/72; PULSE 68; RESP 18; TEMP 35.8; O2SAT 100
[2022-08-08 05:41] LABS: Hematocrit 37.2 % (37.0-47.0); Hemoglobin 11.6 g/dL (12.0-15.0); Mean Corpuscular HGB Conc 31.2 g/dl (32-36); Mean Corpuscular Hemoglobin 28.2 pg (26-34); Mean Corpuscular Volume 90.5 fl (80-100); Mean Platelet Volume 9.7 fl (7.4-10.4); Platelet Count Result 246 k/mm3 (150-375); Red Blood Count 4.11 M/mm3 (4.2-5.4); Red Cell Distribution Width 17.2 % (11.5-14.5); White Blood Count 5.7 K/mm3 (4.5-10.0)
[2022-08-08 05:51] LABS: Anion Gap 5 mmol/L (8-16); Blood Urea Nitrogen 19 mg/dL (7-17); Calcium 8.5 mg/dL (8.4-10.2); Carbon Dioxide 27 mmol/L (22-30); Chloride 103 mmol/L (98-107); Estimated Glomerular Filt Rate 54; Glucose 99 mg/dL (65-110); Potassium 4.5 mmol/L (3.4-5.0); Sodium 135 mmol/L (137-145)
[2022-08-08 08:04] VITALS: BP 115/65; PULSE 62; O2SAT 100
[2022-08-08] MEDS: PANTOPRAZOLE 40 MG TABLET PO (08:07)
[2022-08-08] MEDS: levETIRAcetam 250 MG TABLET 750 MG PO ×2 (08:07→17:44)
[2022-08-08] MEDS: CEPHALEXIN 500 MG CAPSULE PO (08:07)
[2022-08-08] MEDS: amLODIPine BESYLATE 5 MG TABLET PO (08:08)
[2022-08-08] MEDS: polyethylene glycoL 3350 17 GM POWD.PACK PO (08:08)
[2022-08-08 14:48] VITALS: BP 122/74; PULSE 77; RESP 16; TEMP 36.1; O2SAT 100
--- NOTE | 2022-08-08 14:52 | PM.DS ---
DS: Admitting Diagnosis Discharge Date 08/08/2022 Admitting Diagnosis Acute UTI Frequent falls DS: Discharge Diagnosis Discharge Diagnosis (1) Frequent falls: Code(s): R29.6 - Repeated falls Status: Acute Assessment and Plan: Patient suffered a mechanical fall at home, fell and hit her head on the bathtub Having frequent falls recently, reports 3 falls within the past week Appreciate PT/OT eval Fall precautions implemented May be related to glioblastoma vs UTI No acute injury sustained, CT and cervical spine CT with no acute findings SNF denied by insurance. Discharged home with home health (2) UTI (urinary tract infection): Qualifiers: Urinary tract infection type: acute cystitis Hematuria presence: without hematuria Qualified Code(s): N30.00 - Acute cystitis without hematuria Code(s): N39.0 - Urinary tract infection, site not specified Status: Acute Assessment and Plan: UA abnormal on presentation and patient complains of dysuria Urine culture with growth of >100k E coli Patient treated with IV ceftriaxone and then transitioned to p.o. cefdinir. Completed a 7 day course on 08/05/22 Per Urology recommendations, she has been started on Keflex 500 mg daily for suppressive therapy Patient remains afebrile, no leukocytosis (3) Glioblastoma: Code(s): C71.9 - Malignant neoplasm of brain, unspecified Status: Acute Assessment and Plan: Patient with history of glioblastoma Head CT showed stable low-attenuation following right frontotemporoparietal region right insula consistent with glioblastoma Continue with outpatient treatment Continue p.o. chemotherapy brought in from home and continue (4) GERD (gastroesophageal reflux disease): Qualifiers: Esophagitis presence: without esophagitis Qualified Code(s): K21.9 - Gastro-esophageal reflux disease without esophagitis Code(s): K21.9 - Gastro-esophageal reflux disease without esophagitis Status: Chronic Assessment and Plan: No acute issues Continue Protonix (5) HTN (hypertension): Qualifiers: Hypertension type: primary hypertension Qualified Code(s): I10 - Essential (primary) hypertension Code(s): I10 - Essential (primary) hypertension Status: Chronic Assessment and Plan: Blood pressures are stable Continue home amlodipine DS: Summary Hospital Course Reason for hospitalization: Weakness Hospital Course: Patient is 71-year-old female with hypertension, lipidemia, glioblastoma, prior DVT, anxiety and depression. She presented to the emergency department for evaluation of increasing weakness frequent falls. Patient was found to have recurrent glioblastoma on MRI 1 week prior to admission and had initiated oral chemotherapy on the day of admission. She had been seen in the emergency department on 07/27/2022 for a fall as well. In the ED vitals showed temp 37? C, pulse 57, respirations 16, blood pressure 156/83, SpO2 99% on room air. Lab work showed WBC 3.8 and UA positive for nitrates, 3+ leukocyte esterase, and greater than 100 wbc's. She was treated with IV Zofran IV Rocephin 1 g and oxycodone p.o. in the emergency department. Patient was admitted to the medical floor for further management of acute UTI. Patient was continued on Rocephin IV 1 g. Urology was consulted for inpatient evaluation. She had been seen by Urology outpatient for chronic cystitis with plans for renal ultrasound and cystoscopy however this had not been completed prior to admission. Urine culture showed E coli resistant to fluoroquinolones and Bactrim. Blood cultures were negative for growth. She was transitioned to oral cefdinir 300 mg p.o. q.12 hours on 08/02 to 08/05 to complete a full 7 day antibiotic course. She was then transitioned to oral Keflex 500 mg daily for UTI suppression. Pain was treated with p.r.n. oxycodone 2.5 mg. PT and O
--- NOTE | 2022-08-08 15:20 | PC.NURSE ---
Addendum entered by Sherri Ladd RN 08/08/22 15:26: RN left a message with the provider as well. Original Note: Pt and family had complaints regarding d/c plan. RN left message with patient advocate and notified care coordination.
[2022-08-08] MEDS: oxyCODONE HCL (*CRX) 2.5 MG TAB IR PO (17:44)
[2022-08-08] MEDS: ONDANSETRON HCL ODT 4 MG TABLET 8 MG PO (18:49)
--- NOTE | 2022-08-08 18:50 | PC.NURSE ---
Home medications returned to patient.
== END 2022-08-08 19:10 | disposition home health service (06) ==
LOC: ANHED 12:38 → ANH2MED 07-31 13:45 → ANH3MEDSUR 08-09 12:07
PROVIDERS: Nurse Practitioner; Admitting Provider Chiropractor; Emergency Provider Emergency Medicine; PCP Internal Medicine; Visit Provider Physician Assistant
DX: R29.6 Repeated falls (principal); S09.90XA Unspecified injury of head, initial encounter; W18.2XXA Fall in (into) shower or empty bathtub, initial encounter; Y92.002 Bathroom of unspecified non-institutional (private) residence as the place of occurrence of the external cause; N30.00 Acute cystitis without hematuria; B96.20 Unspecified Escherichia coli [E. coli] as the cause of diseases classified elsewhere; C71.9 Malignant neoplasm of brain, unspecified; K21.9 Gastro-esophageal reflux disease without esophagitis; I10 Essential (primary) hypertension; Z20.822 Contact with and (suspected) exposure to COVID-19; M43.22 Fusion of spine, cervical region; M43.24 Fusion of spine, thoracic region; F41.9 Anxiety disorder, unspecified; N39.3 Stress incontinence (female) (male); F32.A Depression, unspecified; M79.7 Fibromyalgia; E78.00 Pure hypercholesterolemia, unspecified; M47.812 Spondylosis without myelopathy or radiculopathy, cervical region; Z92.21 Personal history of antineoplastic chemotherapy; Z86.718 Personal history of other venous thrombosis and embolism; Z79.890 Hormone replacement therapy; Z79.899 Other long term (current) drug therapy
CPT/HCPCS: 36415; 70450; 71045; 72125; 80048; 80053; 81001; 83605; 83690; 83735; 84443; 85025; 85027; 87040; 87077; 87086; 87186; 87636; 96365; 96375; 97110; 97116; 97162; 97165; 97530; 97535; 99285; A9270; G0378; J0131; J0696; J2405